=== PATIENT | female | born 1950 | race Hispanic/Latino ===

== ENCOUNTER 2016-08-23 12:17 | Emergency (ER) | payer BC, OTHER ==
[2016-08-23 12:33] VITALS: RESP 18; BMI 36.6
[2016-08-23] MEDS ORDERED: TDAP Vaccine 0.5 mL Syr IM ONE (12:37)
--- NOTE | 2016-08-23 13:45 | RAD ---
PROCEDURE: Right Knee Radiographs. HISTORY: knee pain COMPARISON: None. FINDINGS: BONES: Normal. No fracture. JOINTS: Normal. No osteoarthritis. JOINT EFFUSION: None. OTHER FINDINGS: None. IMPRESSION: Normal radiographs of the right knee.
--- NOTE | 2016-08-23 13:57 | ED PDOC ---
Arrival/HPI - General Chief Complaint: Trauma Time Seen by Provider: 08/23/16 12:36 Historian: Patient - History of Present Illness Narrative History of Present Illness (Text): 08/23/16 15:53 66-year-old female presents today status post fall. Patient states she was rushing and tripped and fell landing on the right side. Patient complaining of pain and abrasion to the right knee complaining of pain to the right elbow and now is complaining of pain to the right ribs. Patient denies chest pain or shortness of breath. Denies neck or back pain. No medications taken for pain. Patient unsure of her last tetanus shot. Incident occurred prior to arrival Past Medical History - Provider Review Nursing Documentation Reviewed: Yes - Travel History Have you recently traveled outside [place] w/in the past 3 mons?: No - Infectious Disease Hx of Infectious Diseases: None - Tetanus Immunization Tetanus Immunization: Unknown - Reproductive Menopause: Yes - Cardiac Hx Hypertension: Yes Hx Pacemaker: No Hx Peripheral Edema: Yes - Pulmonary Other/Comment: smoker - Neurological Hx Paralysis: No - HEENT Hx HEENT Disorder: No - Renal Hx Renal Disorder: No - Endocrine/Metabolic Hx Endocrine Disorders: No - Hematological/Oncological Hx Cancer: Yes (skin) Hx Hepatitis C: Yes - Integumentary Hx Dermatological Disorder: No - Musculoskeletal/Rheumatological Hx Arthritis: Yes - Gastrointestinal Hx Gastrointestinal Disorders: Yes Other/Comment: cirrhosis - Genitourinary/Gynecological Hx Genitourinary Disorders: No - Psychiatric Hx Depression: No Hx Emotional Abuse: No Hx Physical Abuse: No Hx Substance Use: No - Past Surgical History Past Surgical History: No Previous - Anesthesia Hx Anesthesia: Yes Hx Anesthesia Reactions: No Hx Malignant Hyperthermia: No - Suicidal Assessment Feels Threatened In Home Enviroment: No Family/Social History - Physician Review Nursing Documentation Reviewed: Yes Family/Social History: Unknown Family HX Smoking Status: Heavy Smoker > 10 Cigarettes Daily Hx Alcohol Use: Yes (PAST ETOH(5-7 BEERS/DAY);LAST USE 10/14/13) Hx Substance Use: No Substance used: herion, cocaine, marijuana Hx Substance Use Treatment: No Allergies/Home Meds Allergies/Adverse Reactions: Allergies No Known Allergies Allergy (Verified 08/23/16 12:33) Home Medications: Home Meds Medication Instructions Recorded Confirmed Ferrous Sulfate [Feosol] 325 mg PO DAILY 12/30/13 03/20/15 Omeprazole 20 mg PO DAILY 12/30/13 03/20/15 Potassium Chloride 10 meq PO DAILY 12/30/13 03/20/15 Propranolol Hydrochloride 10 mg PO TID 12/30/13 03/20/15 [Propranolol] Sertraline HCl [Sertraline] 25 mg PO DAILY 12/30/13 03/20/15 Tramadol HCl [Ultram] 50 mg PO Q8 PRN 01/06/14 03/20/15 Review of Systems - Review of Systems Constitutional: absent: Fatigue, Fevers Respiratory: absent: SOB, Cough Cardiovascular: absent: Chest Pain, Palpitations Gastrointestinal: absent: Abdominal Pain, Diarrhea, Nausea, Vomiting Musculoskeletal: Arthralgias. absent: Back Pain, Neck Pain Skin: Other (Abrasion to the right knee) Physical Exam Vital Signs Reviewed: Yes Vital Signs Temp Pulse Resp BP Pulse Ox 08/23/16 15:05 97.5 F L 80 18 154/86 H 98 08/23/16 12:22 97.2 F L 78 18 177/114 H 99 Temperature: Afebrile Blood Pressure: Hypertensive Pulse: Regular Respiratory Rate: Normal Appearance: Positive for: Well-Appearing, Non-Toxic, Comfortable Pain Distress: None Mental Status: Positive for: Alert and Oriented X 3 - Systems Exam Head: Present: Atraumatic Mouth: Present: Moist Mucous Membranes Neck: Present: Normal Range of Motion. No: MIDLINE TENDERNESS, Paraspinal Tenderness Respiratory/Chest: Present: Clear to Auscultation, Good Air Exchange, Tender to Palpation (Minimal tenderness noted to the right lateral ribs. No step-offs or crepitus). No: Respiratory Distress, Accessory Muscle Use, Wheezes, Decreased Breath Sounds, Rhonchi, Tachypneic Cardiovascular: Present: Regular Rate and Rhythm, Normal S1, S2. No: Murmurs Back: Present: Normal Inspection Upper Extremity: Present: Normal ROM, NORMAL PULSES, Tenderness (Right elbow: There is tenderness noted over the posterior elbow at the olecranon process. Full range of motion of the elbow without pain. Sensation and distal pulses intact. There is no edema nor erythema no ecchymosis.), Neurovascularly Intact, Capillary Refill < 2s. No: Swelling, Erythema, Deformity Lower Extremity: Present: NORMAL PULSES, Normal ROM, Tenderness (Right knee: There is abrasion noted over the anterior aspect of the right knee. Surrounding erythema and ecchymosis noted. There is full range of motion of the knee with pain. No calf tenderness. Sensation intact.), Swelling, Neurovascularly Intact. No: CALF TENDERNESS, Erythema Neurological: Present: GCS=15, Speech Normal Skin: Present: Warm, Dry, Normal Color Psychiatric: Present: Alert, Oriented x 3 Medical Decision Making ED Course and Treatment: 08/23/16 15:56 Patient nontoxic well-appearing in no distress slightly hypertensive. Patient with a history of hypertension did not take her medications today X-rays of the right knee: No fracture X-rays of the right elbow: No fracture X-rays of the right ribs/PA chest: No fracture no pneumothorax Patient refused injection for pain Tramadol given by mouth Tetanus updated Abrasions to the knee were cleaned with normal saline, bacitracin and a dressing applied Patient placed in knee immobilizer, pt unable to tolerate crutches, cane given. I discussed all results with patient advised to followup with the orthopedist for the next 2 days. Return if symptoms worsen persist or new symptoms develop i advised the patient that although the xrays show no fracture; there is still a possibility for ligamentous or tendon injury the patient must see the orthopedist for further evaluation. Patient verbalizes understanding of discharge instructions and need for immediate followup. Impression: knee pain, abrasion, knee, elbow pain, rib contusion Motrin every 6 hours as needed for pain continue tramadol at home for moderate to severe pain. Rest, ice, compression, elevation Followup with the orthopedist within the next 2 days Followup with primary care physician within the next 2 days keep wounds clean and dry; apply bacitracin twice daily. Return if symptoms worsen persist or if new symptoms develop - RAD Interpretation Radiology Orders: 08/23/16 12:36 ELBOW RIGHT 3 VIEWS ROUTINE [RAD] Stat KNEE W PATELLA RIGHT 3 VIEW [RAD] Stat RIBS RIGHT & PA CHEST [RAD] Stat - Medication Orders Current Medication Orders: Discontinued Medications Tetanus/Reduced Diphtheria/Acell Pertussis (Boostrix Vaccine Inj) 0.5 ml IM .ONCE ONE Stop: 08/23/16 12:38 Last Admin: 08/23/16 12:51 Dose: 0.5 ML MAR Immunization Data Document 08/23/16 12:51 [facility] (Rec: 08/23/16 12:52 [id number]) Immunization Data Vaccine Lot Number [id number] Vaccine Expiration Date 08/10/18 Site Given Right Arm Tramadol HCl (Ultram) 50 mg PO STAT STA Stop: 08/23/16 12:38 Last Admin: 08/23/16 12:51 Dose: 50 MG Disposition/Present on Arrival - Present on Arrival Any Indicators Present on Arrival: No History of DVT/PE: No History of Uncontrolled Diabetes: No Urinary Catheter: No History of Decub. Ulcer: No History Surgical Site Infection Following: None - Disposition Have Diagnosis and Disposition been Completed?: Yes Diagnosis: Knee pain, Abrasion, knee, Elbow pain, Rib contusion Disposition: HOME/ ROUTINE Disposition Time: 13:45 Patient Plan: Discharge Condition: GOOD Discharge Instructions (ExitCare): Knee Pain (ED), Abrasion (ED), Rib Contusion (ED) Additional Instructions: Motrin every 6 hours as needed for pain Take your tramadol as prescribed Follow-up with the orthopedist within the next 2 days Keep the wound clean and dry applied bacitracin twice daily Follow-up the primary care physician within the next 2 days Return if symptoms worsen persist or if new concerning symptoms develop Prescriptions: Ibuprofen [Motrin] 600 mg PO Q6H PRN #20 tab PRN Reason: pain/fever reduction Referrals: Darrell Flores MD [Primary Care Provider] - Follow up with primary Bhanu Lazar III, MD [Medical Doctor] - Follow up with primary
--- NOTE | 2016-08-23 14:35 | RAD ---
PROCEDURE: Radiographs of the Chest and Right Ribs. HISTORY: fall COMPARISON: None available. TECHNIQUE: Frontal radiograph of the chest and multiple oblique radiographs of the right ribs were obtained. FINDINGS: RIGHT RIBS: No fracture or focal lesion visualized. LUNGS: Clear. PLEURA: No pneumothorax or pleural fluid. CARDIOVASCULAR: Normal sized heart. No pulmonary vascular congestion. OTHER FINDINGS: None. IMPRESSION: Unremarkable radiographs of the chest and right ribs. No right rib fracture.
--- NOTE | 2016-08-23 14:35 | RAD ---
PROCEDURE: Radiographs of the right elbow. HISTORY: fall COMPARISON: No prior. FINDINGS: BONES: Normal. No fracture. JOINTS: Normal. No osteoarthritis. SOFT TISSUES: Normal. JOINT EFFUSION: None. OTHER FINDINGS: None. IMPRESSION: Unremarkable radiographs of the right elbow.
[2016-08-23 15:06] VITALS: BP 154/86; PULSE 80; TEMP 97.5; O2SAT 98
== END 2016-08-23 15:08 | disposition home or self-care (01) ==
LOC: ED 12:17
DX: S80.211A Abrasion, right knee, initial encounter (principal); S20.211A Contusion of right front wall of thorax, initial encounter; W01.0XXA Fall on same level from slipping, tripping and stumbling without subsequent striking against object, initial encounter; M25.561 Pain in right knee; M25.521 Pain in right elbow; I10 Essential (primary) hypertension; F17.210 Nicotine dependence, cigarettes, uncomplicated; Z23 Encounter for immunization

== ENCOUNTER 2016-12-19 10:51 | Inpatient (IN) | payer BC, MEDICARE ==
[2016-12-19 10:51] VITALS: BMI 36.6
[2016-12-19 12:09] LABS: BASO # 0.06 K/mm3 (0.0-2.0); BASO % 0.7 % (0.0-3.0); EOS # 0.3 (0.0-0.7); EOS % 3.2 % (1.5-5.0); GRAN # 6.28 (1.4-6.5); GRAN % 74.6 % (50.0-68.0); HEMOGLOBIN 14.2 gm/dL (12.0-16.0); LYMPH % 11.7 % (22.0-35.0); MEAN CELL VOLUME 80.8 fL (80.0-105.0); MEAN CORPUSCULAR HEMOGLOBIN 27.8 pg (25.0-35.0); MEAN CORPUSCULAR HGB CONC 34.4 g/dl (31.0-37.0); MEAN PLATELET VOLUME 10.8 fl (7.0-11.0); MONO # 0.8 (0.1-0.6); MONO % 9.8 % (1.0-6.0); PLATELET COUNT 149 10^3/uL (120.0-450.0); RBC 5.11 10^6/uL (3.5-6.1); RED CELL DISTRIBUTION WIDTH 14.2 % (11.5-14.5); WHITE BLOOD COUNT 8.4 10^3/ul (4.5-11.0)
[2016-12-19 12:16] LABS: ALBUMIN 4.4 g/dL (3.0-4.8); ALT/SGPT 22 U/L (7-56); AST/SGOT 32 U/L (15-39); BLOOD UREA NITROGEN 14 mg/dL (7-21); CALCIUM 9.3 mg/dL (8.4-10.5); GFR AFRICAN-AMERICAN > 60; GFR NON-AFRICAN AMERICAN > 60; LIPASE 41 U/L (23-300); MAGNESIUM 1.8 mg/dL (1.7-2.2)
[2016-12-19 12:19] LABS: INR 1.12 (0.93-1.08); PROTHROMBIN TIME 12.1 Seconds (9.9-11.8)
[2016-12-19 12:20] LABS: D DIMER 0.62 mg/L FEU (0-0.50)
[2016-12-19 12:25] LABS: B-TYPE NATRIURETIC PEPTIDE 152 pg/mL (0-450)
--- NOTE | 2016-12-19 12:25 | ED PDOC ---
Arrival/HPI - General Historian: Patient - History of Present Illness Symptom Onset: Sudden Symptom Course: Unchanged Quality: Dullness, Unable to Describe Severity Level: 7 Activities at Onset: Rest Context: Sitting <Austyn Snyder - Last Filed: 12/19/16 15:50> <Bandar Ronquillo - Last Filed: 12/19/16 15:55> - General Chief Complaint: Chest Pain Time Seen by Provider: 12/19/16 11:06 - History of Present Illness Narrative History of Present Illness (Text): 12/19/16 12:25 This is a 66 year old female with a past medical history of HTN, Esophageal varicies, Liver Cirrhosis and Hepatitis C who presents to [facility] with complaints of chest pain and shortness of breath since this morning at approximately 7 am. The patient states the pain began after drinking a cup of coffee. The patient describes the pain as sharp and dull with no distinction between them. She states that the pain radiates from mid sternal chest area to her esophagus. She rates the pain at 7/10 when it began this morning, and it has remained 7/10 upon coming to the E.D. The patient took 2 Amber-seltzer tablets and drank 2 cups of milk for the pain but it was not relieved. The patient was urged by her PMD Dr. Boles to come in today for the pain. Patient reports sore throat and shortness of breath upon exertion. Patient denies nausea, vomiting, stomach pain, lightheadedness, dizziness, or syncopal episodes. (Austyn Snyder) Past Medical History - Provider Review Nursing Documentation Reviewed: Yes - Travel History Have you recently traveled outside [place] w/in the past 3 mons?: No - Infectious Disease Hx of Infectious Diseases: None - Tetanus Immunization Tetanus Immunization: Unknown - Cardiac Hx Cardiac Disorders: Yes Hx Hypertension: Yes Hx Pacemaker: No Hx Peripheral Edema: Yes - Pulmonary Hx Respiratory Disorders: No Other/Comment: smoker - Neurological Hx Neurological Disorder: No Hx Paralysis: No - HEENT Hx HEENT Disorder: No - Renal Hx Renal Disorder: No - Endocrine/Metabolic Hx Endocrine Disorders: No - Hematological/Oncological Hx Blood Disorders: Yes Hx Cancer: Yes (skin) Hx Hepatitis C: Yes - Integumentary Hx Dermatological Disorder: No - Musculoskeletal/Rheumatological Hx Musculoskeletal Disorders: Yes Hx Arthritis: Yes - Gastrointestinal Hx Gastrointestinal Disorders: Yes Other/Comment: cirrhosis - Genitourinary/Gynecological Hx Genitourinary Disorders: No - Psychiatric Hx Psychophysiologic Disorder: No Hx Depression: No Hx Emotional Abuse: No Hx Physical Abuse: No Hx Substance Use: No - Past Surgical History Past Surgical History: No Previous - Anesthesia Hx Anesthesia: Yes Hx Anesthesia Reactions: No Hx Malignant Hyperthermia: No - Suicidal Assessment Feels Threatened In Home Enviroment: No <Austyn Snyder - Last Filed: 12/19/16 15:50> Family/Social History - Physician Review Nursing Documentation Reviewed: Yes Family/Social History: No Known Family HX Smoking Status: Heavy Smoker > 10 Cigarettes Daily Hx Alcohol Use: Yes (Previous alcohol abuse. Last drink was 3 years ago.) Hx Substance Use: Yes Substance used: herion, cocaine, marijuana Route: Intravenous/IM Hx Substance Use Treatment: No <Austyn Snyder - Last Filed: 12/19/16 15:50> Allergies/Home Meds <Austyn Snyder - Last Filed: 12/19/16 15:50> <Bandar Ronquillo - Last Filed: 12/19/16 15:55> Allergies/Adverse Reactions: Allergies No Known Allergies Allergy (Verified 12/19/16 10:58) Home Medications: Home Meds Medication Instructions Recorded Confirmed Ferrous Sulfate [Feosol] 325 mg PO DAILY 12/30/13 12/19/16 Sertraline HCl [Sertraline] 50 mg PO DAILY 12/30/13 12/19/16 Tramadol HCl [Ultram] 50 mg PO Q8 PRN 01/06/14 12/19/16 Ferrous Sulfate [Feosol] 325 mg PO DAILY 12/19/16 12/19/16 Furosemide [Lasix] 0 mg PO BID 12/19/16 12/19/16 Lisinopril [Zestril] 10 mg PO DAILY 12/19/16 12/19/16 Omeprazole [Omeprazole] 20 mg PO DAILY 12/19/16 12/19/16 Potassium Chloride [Klor-Con 10] 0 meq PO BID 12/19/16 12/19/16 Propranolol [Inderal] 0 mg PO BID 12/19/16 12/19/16 amLODIPine [Norvasc] 10 mg PO DAILY 12/19/16 12/19/16 Review of Systems - Physician Review All systems were reviewed & negative as marked: Yes - Review of Systems Constitutional: Normal Eyes: Normal ENT: Normal Respiratory: SOB Cardiovascular: Chest Pain, EDUARDO (mild) Gastrointestinal: Normal Genitourinary Female: Normal Musculoskeletal: Normal Skin: Normal Neurological: Normal Endocrine: Normal Hemo/Lymphatic: Normal Psychiatric: Normal <Austyn Snyder - Last Filed: 12/19/16 15:50> Physical Exam Vital Signs Reviewed: Yes Temperature: Afebrile Blood Pressure: Normal Pulse: Regular Respiratory Rate: Normal Appearance: Positive for: Well-Appearing, Non-Toxic, Comfortable Pain Distress: None Mental Status: Positive for: Alert and Oriented X 3 - Systems Exam Head: Present: Atraumatic, Normocephalic Pupils: Present: PERRL Extroacular Muscles: Present: EOMI Conjunctiva: Present: Normal Mouth: Present: Moist Mucous Membranes Pharnyx: Present: Normal. No: ERYTHEMA, EXUDATE Neck: Present: Normal Range of Motion Respiratory/Chest: Present: Clear to Auscultation, Good Air Exchange. No: Respiratory Distress, Accessory Muscle Use Cardiovascular: Present: Regular Rate and Rhythm, Normal S1, S2. No: Murmurs Abdomen: Present: Normal Bowel Sounds. No: Tenderness, Distention, Peritoneal Signs Back: Present: Normal Inspection Upper Extremity: Present: Normal Inspection. No: Cyanosis, Edema Lower Extremity: Present: Normal Inspection. No: Edema Neurological: Present: GCS=15, CN II-XII Intact, Speech Normal Skin: Present: Warm, Dry, Normal Color. No: Rashes Psychiatric: Present: Alert, Oriented x 3, Normal Insight, Normal Concentration <Austyn Snyder - Last Filed: 12/19/16 15:50> Medical Decision Making <Austyn Snyder - Last Filed: 12/19/16 15:50> <Bandar Ronquillo - Last Filed: 12/19/16 15:55> ED Course and Treatment: 12/19/16 12:41 66 year old female with pleuritic chest pain. Will order labs including, EKG, chest xray, CTA. Will give Toradol for pain as needed. Will reassess patient after remainder of labs return. (Austyn Snyder) A 66 year old female with pleuritic chest pain and shortness of breath. In agreement with resident note, which includes further HPI details. Patient was seen and evaluated with resident, came up with plan and treatment together. 12/19/16 15:39 As mentioned, patient with pleuritic chest pain with ekg with less than 1/2 mm EDISON inferiorly with SD depressions; more consistent with pericarditis. EKG does not fit STEMI criteria. First set of CE negative. Patient reports moderate improvement with toradol. Discussed with Dr. Herrera, who agrees with described findings and will consult. (Bandar Ronquillo) - Lab Interpretations Lab Results: 12/19/16 11:15 12/19/16 11:15 Lab Results 12/19/16 12:55: Urine Opiates Screen Negative, Urine Methadone Screen Negative, Ur Barbiturates Screen Negative, Ur Phencyclidine Scrn Negative, Ur Amphetamines Screen Negative, U Benzodiazepines Scrn Negative, U Oth Cocaine Metabols Negative, U Cannabinoids Screen Negative 12/19/16 12:55: Urine Color Yellow, Urine Appearance Clear, Urine pH 7.0, Ur Specific [place] 1.015, Urine Protein Negative, Urine Glucose (UA) Negative, Urine Ketones Negative, Urine Blood Trace-intact H, Urine Nitrate Negative, Urine Bilirubin Negative, Urine Urobilinogen 0.2, Ur Leukocyte Esterase Negative , Urine RBC 0 - 2, Urine WBC Negative 12/19/16 11:15: PT 12.1 H, INR 1.12 H, APTT 29.0, D-Dimer, Quantitative 0.62 H 12/19/16 11:15: Sodium 137, Potassium 4.5, Chloride 101, Carbon Dioxide 25, Anion Gap 16, BUN 14, Creatinine 0.7, Est GFR ( Amer) > 60, Est GFR (Non- Af Amer) > 60, Random Glucose 126 H, Calcium 9.3, Magnesium 1.8, Total Bilirubin 1.3, AST 32, ALT 22, Alkaline Phosphatase 105, Lactate Dehydrogenase 490, Total Creatine Kinase 52, Troponin I < 0.01, NT-Pro-B Natriuret Pep 152, Total Protein 8.6 H, Albumin 4.4, Globulin 4.2, Albumin/Globulin Ratio 1.0 L, Lipase 41 12/19/16 11:15: WBC 8.4 D, RBC 5.11, Hgb 14.2, Hct 41.3, MCV 80.8, MCH 27.8, MCHC 34.4, RDW 14.2, Plt Count 149, MPV 10.8, Gran % 74.6 H, Lymph % (Auto) 11.7 L, [place] % (Auto) 9.8 H, Eos % (Auto) 3.2, Baso % (Auto) 0.7, Gran # 6.28, Lymph # 1.0 L, [place] # 0.8 H, Eos # 0.3, Baso # 0.06 - RAD Interpretation Radiology Orders: 12/19/16 11:39 DUPLEX LOWER EXTRM VEIN BILAT [US] Stat 12/19/16 11:41 CHEST ONE VIEW [RAD] Stat 12/19/16 12:22 ANGIO CHEST PE PROTOCOL [CT] Stat - EKG Interpretation EKG Interpretation (Text): 12/19/16 15:54 NSR @ 81 with less than 1/2 mm EDISON inferolaterally with diffuse SD depressions; no reciprocal changes; EDISON are slightly more evident than previous on 12/30/13. ( Bandar Ronquillo) - Medication Orders Current Medication Orders: Discontinued Medications Aspirin (Aspirin) 325 mg PO STAT STA Stop: 12/19/16 11:40 Last Admin: 12/19/16 12:27 Dose: 325 mg Iodixanol (Visipaque 320 Mg/Ml 100 Ml) Confirm Administered Dose 100 ml IV .STK- MED ONE Stop: 12/19/16 13:26 Ketorolac Tromethamine (Toradol) 30 mg IVP STAT STA Stop: 12/19/16 12:24 Last Admin: 12/19/16 12:28 Dose: 30 mg <Austyn Snyder - Last Filed: 12/19/16 15:50> - PA / CLIENT SOLUTIONS DIRECTOR / Resident Statement / has reviewed & agrees with the documentation as recorded. MD/DO has examined the patient and agrees with the treatment plan. - Scribe Statement The provider has reviewed the documentation as recorded by the Scribe <Bandar Ronquillo - Last Filed: 12/19/16 15:55> - Scribe Statement Selene Schwarz Provider Scribe Attestation: All medical record entries made by the Scribe were at my direction and personally dictated by me. I have reviewed the chart and agree that the record accurately reflects my personal performance of the history, physical exam, medical decision making, and the department course for this patient. I have also personally directed, reviewed, and agree with the discharge instructions and disposition. (Bandar Ronquillo) Disposition/Present on Arrival - Present on Arrival History of DVT/PE: No History of Uncontrolled Diabetes: No Urinary Catheter: No History of Decub. Ulcer: No History Surgical Site Infection Following: None <Austyn Snyder - Last Filed: 12/19/16 15:50> - Present on Arrival Any Indicators Present on Arrival: No - Disposition Have Diagnosis and Disposition been Completed?: Yes Disposition Time: 15:30 Patient Plan: Observation, Telemetry <Bandar Ronquillo - Last Filed: 12/19/16 15:55> - Disposition Diagnosis: Chest pain Disposition: HOSPITALIZED Patient Problems: Current Active Problems Problem Status Onset Chest pain Acute Condition: FAIR Discharge Instructions (ExitCare): Chest Pain (ED) Referrals: Darrell Flores MD [Primary Care Provider] - Follow up with primary Forms: [facility] ([place])
[2016-12-19 12:30] LABS: TROPONIN I < 0.01 ng/mL
[2016-12-19 13:23] LABS: URINE BILIRUBIN NEGATIVE (NEGATIVE); URINE BLOOD TRACE-INTACT (NEGATIVE); URINE GLUCOSE (UA) NEGATIVE (NEGATIVE); URINE LEUKOCYTE ESTERASE NEGATIVE Leu/uL (NEGATIVE); URINE NITRATE NEGATIVE (NEGATIVE); URINE PROTEIN NEGATIVE mg/dL (<30 mg/dL); URINE UROBILINOGEN 0.2 E.U./dL (<1 E.U./dL)
[2016-12-19] MEDS ORDERED: Iodixanol 320 MG/ML 100 ML BOTTLE IV ONE (13:25)
[2016-12-19 13:26] LABS: URINE APPEARANCE CLEAR (CLEAR); URINE COLOR YELLOW (YELLOW)
[2016-12-19 13:44] LABS: URINE RBC 0 - 2 /hpf (0-2); URINE WBC NEGATIVE /hpf (0-6)
[2016-12-19 13:49] LABS: BARBITURATES, UR NEGATIVE (NEGATIVE); BENZODIAZEPINES, UR NEGATIVE (NEGATIVE); OPIATES, UR NEGATIVE (NEGATIVE); PHENCYCLIDINE, UR NEGATIVE (NEGATIVE)
--- NOTE | 2016-12-19 14:20 | RAD ---
PROCEDURE: CHEST RADIOGRAPH, 1 VIEW HISTORY: Chest pain COMPARISON: None available. FINDINGS: LUNGS: Clear. PLEURA: No pneumothorax or pleural fluid seen. CARDIOVASCULAR: Mild cardiomegaly OSSEOUS STRUCTURES: No significant abnormalities. VISUALIZED UPPER ABDOMEN: Normal. OTHER FINDINGS: None. IMPRESSION: No active disease.
--- NOTE | 2016-12-19 15:10 | CT ---
PROCEDURE: CT Chest with contrast (Pulmonary Angiogram) HISTORY: pleuritic chest pain - r/o PE COMPARISON: None available. TECHNIQUE: Axial computed tomography images were obtained of the chest in the pulmonary arterial phase of enhancement. Coronal and sagittal reformatted images were created and reviewed. Intravenous contrast dose: 100 cc of Visipaque Radiation dose: Total exam DLP = 697 mGy-cm. This CT exam was performed using one or more of the following dose reduction techniques: Automated exposure control, adjustment of the mA and/or kV according to patient size, and/or use of iterative reconstruction technique. FINDINGS: PULMONARY ARTERIES: Unremarkable. No pulmonary embolism. AORTA: No acute findings. No thoracic aortic aneurysm. LUNGS: Unremarkable. No nodule, mass or pulmonary consolidation. PLEURAL SPACES: Unremarkable. No effusion or pneuomothorax. HEART: Unremarkable. No cardiomegaly. No significant pericardial effusion. LYMPH NODES: No lymphadenopathy. BONES, CHEST WALL: Unremarkable. No fracture or destructive lesion OTHER FINDINGS: The liver has an irregular contour suspicious for cirrhosis. IMPRESSION: Unremarkable CT pulmonary angiogram. No pulmonary embolus.
--- NOTE | 2016-12-19 15:40 | CARD ---
APPROVED REPORT EKG Measurement Heart [id number] ID [id number] <Conclusion> Normal sinus rhythm with sinus arrhythmia 1.[address] elevations 2,3,F, new- R/O injury pattern, pericarditis, etc I notified Dr. Ronquillo
--- NOTE | 2016-12-19 18:37 | CON ---
CARDIOLOGY CONSULTATION DATE: 12/19/2016 HISTORY OF PRESENT ILLNESS: The patient is a 66-year-old woman who presents with pleuritic like focal chest discomfort with radiation to her neck since this morning. The patient's past medical history is notable for a long history of smoking. In addition, the patient suffers from hypertension. No diabetes mellitus. No previous cardiac history in the past. She underwent a stress test in 2012 which was unremarkable. The patient does take Motrin at home for pains in her knees. SOCIAL HISTORY: The patient is an active smoker. REVIEW OF SYSTEMS: Fourteen-point review of systems was reviewed in detail. Besides her substernal focal pleuritic like chest pain, the patient suffers from intermittent edema in the lower extremities with beginning of discoloration in the lower extremities. No history of myocardial infarction. PHYSICAL EXAMINATION: VITAL SIGNS: Blood pressure is 128/80, heart rate is in the 80s. NECK: Negative JVD. LUNGS: Without rales. HEART: Reveals S1, S2. No rub is audible. However, the noise in the emergency room as well as the patient's increased girth makes auscultation difficult. EXTREMITIES: Chronic edematous changes noted. EKG shows concave up ST elevations diffusely approximately 1 mm with minor LA depressions. LABORATORY DATA: Hemoglobin is 14.2. Chemistries. The glucose is 126. Troponin is negative x1. IMPRESSION: 1. Pleuritic chest pain. 2. High probability for pericarditis. 3. Chronic obstructive pulmonary disease with likely pulmonary hypertension as the cause of her pedal edema. 4. Pedal edema. 5. Diabetes mellitus. 6. Obesity. PLAN: Given these findings, I have discussed all these with the patient in detail. The patient has no issues with nonsteroidal anti-inflammatories. We will give a course of high-dose nonsteroidals till next 24-48 hours. We will obtain an echocardiogram to evaluate pericardial effusion as well as to rule out pulmonary hypertension. Berhane Herrera MD
[2016-12-19] MEDS ORDERED: Pneumococcal 23-Valent Vaccine IM ONE (23:07)
--- NOTE | 2016-12-20 09:22 | PN ---
DATE: 12/20/2016 SUBJECTIVE: The patient's symptoms are still present, slightly better on nonsteroidal anti-inflammatories. PHYSICAL EXAMINATION: VITAL SIGNS: Blood pressure 112/49 and heart rate in the 60s. NECK: Negative JVD. LUNGS: No rubs heard. HEART: Regular S1 and S2 without rubs. EXTREMITIES: Without edema. LABORATORY DATA: Troponins so far negative. Chemistries, glucose is 126. IMPRESSION: 1. Pericarditis. 2. Diabetes mellitus. 3. Chronic obstructive pulmonary disease. 4. High probability for pulmonary hypertension. PLAN: Given these findings, we will change her Motrin over to Indocin. An echocardiogram has been ordered. We will obtain a sedimentation rate today. Berhane Herrera MD
--- NOTE | 2016-12-20 15:25 | CARD ---
APPROVED REPORT EKG Measurement Heart [id number] <Conclusion> Sinus rhythm with premature atrial complexes Otherwise normal ECG
--- NOTE | 2016-12-20 23:08 | CP.PCM.PN ---
Subjective - Date & Time of Evaluation Date of Evaluation: 12/20/16 Time of Evaluation: 22:50 - Subjective Subjective: Patient seen for her c/o inability to fall asleep.She does not have any specific complaints. She was admitted for c/o chest pain. VS: HR 120 BP 107/60 RR 20 T 97.8 O2 sat 94% on RA PMH:HTN,Arthritis,Obesity,Skin Ca, Hep C,Esophageal varices. Objective - Vital Signs/Intake and Output Vital Signs (last 24 hours): Temp Pulse Resp BP Pulse Ox 98.3 F 116 H 21 142/63 98 12/20/16 17:30 12/20/16 22:00 12/20/16 17:30 12/20/16 17:30 12/20/16 06:00 - Medications Medications: Current Medications Alprazolam (Xanax) 0.25 mg PO STAT STA Stop: 12/20/16 23:02 Indomethacin (Indocin) 50 mg PO TID ADRIANNA Last Admin: 12/20/16 17:30 Dose: 50 mg - Labs Labs: PT 12.1 Seconds (9.9-11.8) H 12/19/16 11:15 INR 1.12 (0.93-1.08) H 12/19/16 11:15 APTT 29.0 Seconds (23.7-30.8) 12/19/16 11:15 - Constitutional Appears: No Acute Distress - Eye Exam Eye Exam: PERRL - ENT Exam ENT Exam: Mucous Membranes Moist - Neck Exam Neck Exam: Normal Inspection - Respiratory Exam Respiratory Exam: Clear to Ausculation Bilateral - Cardiovascular Exam Cardiovascular Exam: Tachycardia, REGULAR RHYTHM - GI/Abdominal Exam GI & Abdominal Exam: Soft, Normal Bowel Sounds. absent: Tenderness - Extremities Exam Extremities Exam: Normal Inspection. absent: Calf Tenderness - Neurological Exam Neurological Exam: Alert, Awake, Oriented x3 - Psychiatric Exam Psychiatric exam: Anxious - Skin Skin Exam: Dry, Warm Assessment and Plan - Assessment and Plan (Free Text) Assessment: Insomnia Anxiety Plan: Xanax 0.25 mg po
--- NOTE | 2016-12-20 23:46 | CP.PCM.PN ---
Subjective - Date & Time of Evaluation Date of Evaluation: 12/20/16 Time of Evaluation: 23:41 - Subjective Subjective: Patient was seen at bed side because she had conversion of rhythm on monitor from sinus rhythm to atrial fibrillation with rate fluctuating between 120's and 140's. She has no complaints at present except that she can not sleep. Denies chest pain, nausea, sweating, palpitation, shortness of breath. Medical record was reviewed. This 66 year old white woman was admitted with chest pain. Gives history of HTN , arthritis, Obesity,skin cancer in back, hepatitis C, esophageal varices. Objective - Vital Signs/Intake and Output Vital Signs (last 24 hours): Temp Pulse Resp BP Pulse Ox 98.3 F 127 H 21 142/63 98 12/20/16 17:30 12/20/16 22:55 12/20/16 17:30 12/20/16 17:30 12/20/16 06:00 - Medications Medications: Current Medications Diltiazem HCl (Cardizem) 20 mg IVP STAT STA Stop: 12/20/16 23:34 Enoxaparin Sodium (Lovenox) 90 mg SC Q12H ADRIANNA PRN Reason: Protocol Indomethacin (Indocin) 50 mg PO TID [facility] Last Admin: 12/20/16 17:30 Dose: 50 mg - Labs Labs: PT 12.1 Seconds (9.9-11.8) H 12/19/16 11:15 INR 1.12 (0.93-1.08) H 12/19/16 11:15 APTT 29.0 Seconds (23.7-30.8) 12/19/16 11:15 - Constitutional Appears: Well, No Acute Distress - Head Exam Head Exam: ATRAUMATIC, NORMAL INSPECTION, NORMOCEPHALIC Additional comments: Obesity. - Eye Exam Eye Exam: Normal appearance - ENT Exam ENT Exam: Normal External Ear Exam - Neck Exam Neck Exam: Normal Inspection - Respiratory Exam Respiratory Exam: NORMAL BREATHING PATTERN - Cardiovascular Exam Cardiovascular Exam: Tachycardia, Irregular Rhythm, +S1 (Normal.), +S2 (Normal.) . absent: JVD - GI/Abdominal Exam GI & Abdominal Exam: absent: Distended - Rectal Exam Rectal Exam: Deferred - Exam Additional comments: Deferred. - Extremities Exam Extremities Exam: Pedal Edema - Back Exam Back Exam: NORMAL INSPECTION - Neurological Exam Neurological Exam: Alert, Oriented x3 - Psychiatric Exam Psychiatric exam: Normal Affect, Normal Mood - Skin Skin Exam: Normal Color Assessment and Plan - Assessment and Plan (Free Text) Assessment: New onset of atrial fibrillation. Chest pain. HTN. Obesity. Athritis. Elevated D-dimer. History of hepatitis. History of skin cancer. History esophageal varices. ?Pericardits. COPD,Pulmonary HTN? Tobacco dependence. Plan: Cardizem 20 mg IV Stat. Cardizem drip prn. EKg-------------->Atrial fibrillation with RVR, no acute changes. Lovenox as ordered. BMP,Mag,Phos,troponin, TSH. Discussed with .
[2016-12-20] MEDS: Enoxaparin 100 mg Syringe SC SCH (23:48)
[2016-12-21 00:18] LABS: BLOOD UREA NITROGEN 14 mg/dL (7-21); CALCIUM 8.9 mg/dL (8.4-10.5); GFR AFRICAN-AMERICAN > 60; GFR NON-AFRICAN AMERICAN > 60
[2016-12-21 00:29] LABS: TROPONIN I < 0.01 ng/mL
[2016-12-21] MEDS ORDERED: diltiaZEM IVPB 100mg in NS 100 ML IV PRN (01:39)
[2016-12-21 05:51] VITALS: RESP 18; O2SAT 99
--- NOTE | 2016-12-21 10:57 | PN ---
DATE: 12/21/2016 SUBJECTIVE: The patient's chest pain is resolved. She had a short run of nonsustained atrial fibrillation yesterday which is back to normal sinus rhythm. PHYSICAL EXAMINATION: VITAL SIGNS: Blood pressure is 123/45, the heart rates in the 60s, normal sinus rhythm. NECK: Negative JVD. LUNGS: Without rales. HEART: Reveals S1, S2. EXTREMITIES: Trace edema. LABORATORY DATA: Included an echocardiogram which revealed good LV function. The right and left atrium were dilated and there is moderate pulmonary hypertension. IMPRESSION: 1. Resolution of pericarditis with Indocin. 2. Pulmonary hypertension. 3. Chronic obstructive pulmonary disease likely. 4. Diabetes mellitus. 5. Transient atrial fibrillation, likely from her dilated atria. 6. Intermittent pedal edema. PLAN: Given these findings, I have discussed with the patient about the cause of much of her medical issues. I have advised her about the need to stop smoking. The patient can be discharged from a cardiac perspective on p.o. Cardizem. No anticoagulation is indicated at this time. Given her cardiac risk factors, we will arrange for an outpatient stress test early next week. Berhane Herrera MD
[2016-12-21 11:36] VITALS: BP 105/57; TEMP 98
[2016-12-21] MEDS: Enoxaparin 100 mg Syringe SC SCH (12:12)
[2016-12-21 13:56] VITALS: PULSE 74
--- NOTE | 2016-12-22 05:29 | DS ---
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 The patient has been relatively well, but was sent for a cardiology evaluation. Unfortunately, her insurance did not approve stress test several months ago. The patient seems to have done rather well, but presenting to the emergency room with pain in the chest, fullness in the mid sternum and neck area. On EKG, she was found to have acute ST-T changes compatible with pericarditis. She was given anti-inflammatory medicines and admitted, cardiology consult was called. She was seen morning by Dr. Flores. Workup ensued including troponins, echocardiogram was ordered. The following night, she developed an episode of atrial fibrillation/flutter. Paving [employer] Surfacing Labourer, Dr. Berhane Herrera who had seen her earlier was notified and saw her again this morning. She converted back to sinus rhythm spontaneously in a very short time. Dr. Herrera was comfortable in her being discharged to home, and the patient was quite agreeable, in fact looking forward to going home today. Her medications were adjusted and diltiazem 180 mg p.o. daily was ordered and send to a drug store. I discussed the possibility of anticoagulation with Dr. Herrera. Since this was a transient atrial fibrillation and flutter, he felt it most prudent to wait. However, he did inform me how the patient's echo looked, and this was compatible with pulmonary hypertension making the importance of her smoking cessation all greater. He has also counseled the patient regarding her cirrhosis, hepatitis C, pedal edema, etc. FINAL DISCHARGE DIAGNOSES: 1. Acute pericarditis. 2. Transient atrial fibrillation and flutter. 3. Hepatitis C. 4. Cirrhosis. 5. Pulmonary hypertension as suspected on echocardiogram. 6. Hypertension. 7. Osteoarthritis. 8. Tobacco use disorder. 9. Pedal edema. 10. Obesity. Plan is to discharge her home as noted above and follow up in the office in one week. Darrell Flores MD
--- NOTE | 2016-12-22 08:38 | CARD ---
APPROVED REPORT EKG Measurement Heart [id number] <Conclusion> Atrial fibrillation with rapid ventricular response, new Small q in 3 NSSTW changes Prolonged QTC
== END 2016-12-21 16:51 | disposition home or self-care (01) | DRG 315 ==
LOC: ED 10:51 → ERH 15:33 → 2RNO 18:05 → OBSVTOIN 12-21 07:42
PROVIDERS: ADMIT Internal Medicine; ATTEND Internal Medicine
DX: I30.9 Acute pericarditis, unspecified (principal); I48.92 Unspecified atrial flutter; I85.10 Secondary esophageal varices without bleeding; K74.60 Unspecified cirrhosis of liver; I27.2 Other secondary pulmonary hypertension; I48.91 Unspecified atrial fibrillation; B19.20 Unspecified viral hepatitis C without hepatic coma; I10 Essential (primary) hypertension; M19.90 Unspecified osteoarthritis, unspecified site; E66.9 Obesity, unspecified; J44.9 Chronic obstructive pulmonary disease, unspecified; F41.9 Anxiety disorder, unspecified; G47.00 Insomnia, unspecified; Z72.0 Tobacco use; Z68.38 Body mass index [BMI] 38.0-38.9, adult; Z85.828 Personal history of other malignant neoplasm of skin

== ENCOUNTER 2017-01-28 13:02 | Inpatient (IN) | payer BC ==
[2017-01-28] MEDS: Sodium Chloride 0.9% 1,000 ML IV SCH (13:59)
[2017-01-28 14:10] LABS: BASO # 0.02 K/mm3 (0.0-2.0); BASO % 0.2 % (0.0-3.0); EOS # 0.1 (0.0-0.7); EOS % 0.9 % (1.5-5.0); GRAN # 6.96 (1.4-6.5); GRAN % 77.6 % (50.0-68.0); HEMATOCRIT 34.1 % (36.0-48.0); LYMPH % 11.3 % (22.0-35.0); MEAN CORPUSCULAR HEMOGLOBIN 27.5 pg (25.0-35.0); MEAN CORPUSCULAR HGB CONC 34.3 g/dl (31.0-37.0); MEAN PLATELET VOLUME 10.2 fl (7.0-11.0); MONO # 0.9 (0.1-0.6); RED CELL DISTRIBUTION WIDTH 14.4 % (11.5-14.5)
--- NOTE | 2017-01-28 14:12 | ED PDOC ---
Arrival/HPI - History of Present Illness Time/Duration: Prior to Arrival Symptom Onset: Gradual Symptom Course: Worsening Quality: Dullness Activities at Onset: Rest Context: Home <Teddy Argueta - Last Filed: 01/28/17 16:26> <Miguel AVenkata leblanc Fletcher - Last Filed: 01/30/17 08:15> - General Chief Complaint: Weakness/Neurological Deficit Time Seen by Provider: 01/28/17 13:06 - History of Present Illness Narrative History of Present Illness (Text): Patient is a 66 year old female with a past medical history of atrial fibrillation, HTN, and benign colon polyps who presents to the [facility] [place] [place] with complaints of lethargy, dizziness, shortness of breath, diarrhea and productive coughing. She states her symptoms began with overall lethargy dizziness associated with shortness of breath, and fatigue three weeks ago. Patient notes she has been sleeping much more than usual and is unable to carry out as many daily activities as before. She also admits to diarrhea that started two weeks ago and describes it as black in color. In the past week she states she has been coughing and expectorating clear colored mucous. She states that as of late she just has the desire to sleep since any physical activity drains her of energy. She denies chest pain, headache, constipation. 01/28/17 15:34 (Teddy Argueta) Past Medical History - Provider Review Nursing Documentation Reviewed: Yes - Infectious Disease Hx of Infectious Diseases: None - Tetanus Immunization Tetanus Immunization: Unknown - Cardiac Hx Cardiac Disorders: Yes Hx Atrial Fibrillation: Yes Hx Hypertension: Yes - Pulmonary Hx Respiratory Disorders: Yes Hx Chronic Obstructive Pulmonary Disease (COPD): Yes - Neurological Hx Neurological Disorder: No - HEENT Hx HEENT Disorder: No - Renal Hx Renal Disorder: No - Endocrine/Metabolic Hx Endocrine Disorders: No - Hematological/Oncological Hx Blood Disorders: Yes Hx Anemia: Yes (WITH BLOOD TRANSFUSION) Hx Cancer: Yes (skinTO RIGHT SHOULDER.REMOVED.) Hx Cirrhosis: Yes Hx Hepatitis C: Yes (IVDU) - Integumentary Hx Dermatological Disorder: Yes (skin CA) - Musculoskeletal/Rheumatological Hx Musculoskeletal Disorders: Yes Hx Arthritis: Yes Hx Falls: Yes - Gastrointestinal Hx Gastrointestinal Disorders: Yes (OBESITY) Hx Diverticulitis: Yes (ESOPHAGEAL VARICES) Hx Gastrointestinal Ulcer: Yes Other/Comment: cirrhosis - Genitourinary/Gynecological Hx Genitourinary Disorders: No - Psychiatric Hx Psychophysiologic Disorder: Yes (ETOH ABUSE,H/O COCAINE,HEROINE ABUSE-IVDU, SMOKES CIGARETTES) Hx Depression: Yes Hx Emotional Abuse: No Hx Physical Abuse: No Hx Substance Use: No - Past Surgical History Past Surgical History: No Previous - Surgical History Other/Comment: RIGHT LUMP REMOVED TO RIGHT WRIST. - Anesthesia Hx Anesthesia: Yes Hx Anesthesia Reactions: No Hx Malignant Hyperthermia: No - Suicidal Assessment Feels Threatened In Home Enviroment: No <Teddy Argueta - Last Filed: 01/28/17 16:26> Family/Social History - Physician Review Nursing Documentation Reviewed: Yes Family/Social History: Other Smoking Status: Former Smoker Hx Alcohol Use: No Hx Substance Use: No Substance used: herion, cocaine, marijuana Hx Substance Use Treatment: No <Teddy Argueta - Last Filed: 01/28/17 16:26> <Venkata Mueller - Last Filed: 01/30/17 08:15> Narrative Family History (Free Text): Non contributory 01/28/17 14:10 (Teddy Argueta) Allergies/Home Meds <Teddy Argueta - Last Filed: 01/28/17 16:26> <Venkata Mueller - Last Filed: 01/30/17 08:15> Allergies/Adverse Reactions: Allergies No Known Allergies Allergy (Verified 01/28/17 13:10) Home Medications: Home Meds Medication Instructions Recorded Confirmed Sertraline HCl 50 mg PO DAILY 12/30/13 01/28/17 Tramadol HCl [Ultram] 50 mg PO TID PRN 01/06/14 01/28/17 Ferrous Sulfate [Feosol] 325 mg PO DAILY 12/19/16 01/28/17 Furosemide [Lasix] 40 mg PO DAILY 12/19/16 01/28/17 Lisinopril [Zestril] 10 mg PO DAILY 12/19/16 01/28/17 Omeprazole 40 mg PO DAILY 12/19/16 01/28/17 Propranolol [Inderal] 10 mg PO BID 12/19/16 01/28/17 Diclofenac [Diclofenac Sodium] 50 mg PO BID 12/25/16 01/28/17 Diltiazem HCl [Diltiazem 24Hr Cd] 180 mg PO DAILY 12/25/16 01/28/17 Spironolactone [Aldactone] 25 mg PO BID 12/25/16 01/28/17 Ibuprofen [Motrin Tab] 400 mg PO BID 01/28/17 01/28/17 Potassium Chloride [Klor-Con] 20 meq PO DAILY 01/28/17 01/28/17 Review of Systems - Physician Review All systems were reviewed & negative as marked: Yes - Review of Systems Constitutional: Fatigue Eyes: absent: Vision Changes ENT: absent: Sore Throat Respiratory: SOB, Cough, Sputum. absent: Wheezing Cardiovascular: Normal. absent: Chest Pain Gastrointestinal: Abdominal Pain (B/L upper epigastric), Diarrhea (dark colored) , Nausea Skin: absent: Rash, Pruritis Neurological: Dizziness, Other (general weakness) Endocrine: Normal Hemo/Lymphatic: Normal Psychiatric: Normal <Teddy Argueta - Last Filed: 01/28/17 16:26> Physical Exam Vital Signs Reviewed: Yes Temperature: Afebrile Blood Pressure: Normal Pulse: Regular Respiratory Rate: Normal Appearance: Positive for: Ill-Appearing Pain Distress: Mild Mental Status: Positive for: Alert and Oriented X 3 Finger Stick Blood Glucose: 163 - Systems Exam Head: Present: Atraumatic, Normocephalic Extroacular Muscles: Present: EOMI Mouth: Present: Moist Mucous Membranes Respiratory/Chest: Present: Clear to Auscultation, Good Air Exchange. No: Wheezes Cardiovascular: Present: Regular Rate and Rhythm, Normal S1, S2. No: Murmurs Abdomen: Present: Tenderness (B/L upper epigastric area), Normal Bowel Sounds. No: Distention Neurological: Present: CN II-XII Intact, Speech Normal Skin: Present: Warm, Normal Color Psychiatric: Present: Alert, Oriented x 3 <Teddy Argueta - Last Filed: 01/28/17 16:26> Medical Decision Making <Teddy Argueta - Last Filed: 01/28/17 16:26> - Lab Interpretations I have reviewed the lab results: Yes Interpretation: Abnormal lab values (potassium was elevated and treated with kayexalate) - RAD Interpretation Credit Collector: ED Physician <Venkata Mueller - Last Filed: 01/30/17 08:15> ED Course and Treatment: Assessment 66 year old woman presenting with complaints of overall lethargy, weakness, dizziness, shortness of breath, and N/V. Plan - EKG - CXR - CBC, CMP, PT/PTT - Pepcid, Zofran, IVF - Discussed with patient's primary physician Dr. Ruiz regarding admitting to telemetry; he is in agreement. - Dr. Calderon consulted for further evaluation of GI bleed - Dr. Herrera consulted for further evaluation of increased BNP 01/28/17 14:19 01/28/17 15:42 01/28/17 15:43 (Teddy Argueta) 01/28/17 15:48 Patient Seen With Resident: The patient is a 66 year old woman with overall weakness, shortness of breath, nausea, vomiting, and dizziness. The patient will receive an EKG, Chest X-ray, Labs, Pepcid, Zofran, and IV Fluids. In agreement with resident note which contains more details about the patient. Patient was seen and evaluated with resident. Came up with plan and treatment together. EKG: Ordered, reviewed, and independently interpreted the EKG. Rate : 72 BPM Rhythm : NSR Interpretation : No ST-segment elevations or depressions, no T-wave inversions, normal intervals. Comparison : No previous EKG for comparison. Patient's case with discussed with Dr. Flores with my supervision. He agreed to accept patient to telemetry for GI bleed and CHF. Dr. Calderon and Dr. Herrera were consults. I discussed plan with daughter and patient and they agree to admission. Patient is stable and comfortable prior to admission. (Venkata Mueller) - Lab Interpretations Lab Results: 01/28/17 14:06 01/28/17 14:06 Lab Results 01/28/17 14:06: PT 13.3 H, INR 1.23 H, APTT 31.3 H 01/28/17 14:06: TSH 3rd Generation 1.39 01/28/17 14:06: Sodium 134, Potassium 5.7 H* D, Chloride 103, Carbon Dioxide 16 L, Anion Gap 21 H, BUN 54 H, Creatinine 2.1 H, Est GFR ( Amer) 29, Est GFR (Non-Af Amer) 24, Random Glucose 157 H, Calcium 9.5, Phosphorus 4.9 H, Magnesium 2.4 H, Total Bilirubin 1.0, AST 47 H, ALT 40, Alkaline Phosphatase 137 H, NT-Pro-B Natriuret Pep 1800 H, Total Protein 8.3, Albumin 4.1, Globulin 4.2, Albumin/Globulin Ratio 1.0 L 01/28/17 14:06: WBC 9.0, RBC 4.26, Hgb 11.7 L, Hct 34.1 L, MCV 80.0, MCH 27.5, MCHC 34.3, RDW 14.4, Plt Count 313, MPV 10.2, Gran % 77.6 H, Lymph % (Auto) 11.3 L, Maverick % (Auto) 10.0 H, Eos % (Auto) 0.9 L, Baso % (Auto) 0.2, Gran # 6.96 H, Lymph # 1.0 L, Maverick # 0.9 H, Eos # 0.1, Baso # 0.02 01/28/17 14:03: Troponin I < 0.01 - RAD Interpretation Radiology Orders: 01/28/17 13:38 CXR [CHEST PORTABLE] [RAD] Stat CXR normal. No pneumonia. No pleural effusions. (Venkata Mueller) - Medication Orders Current Medication Orders: Diltiazem HCl (Cardizem Cd) 180 mg PO DAILY [facility] Last Admin: 01/29/17 09:46 Dose: 180 mg Furosemide (Lasix) 40 mg PO DAILY [facility] Last Admin: 01/29/17 09:46 Dose: 40 mg Sodium Chloride (Sodium Chloride 0.9%) 1,000 mls @ 100 mls/hr IV .Q10H [facility] Last Admin: 01/30/17 02:18 Dose: 100 mls/hr Ondansetron HCl (Zofran Inj) 4 mg IVP Q4H PRN PRN Reason: Nausea/Vomiting Pantoprazole Sodium (Protonix Ec Tab) 40 mg PO 0600 [facility] Last Admin: 01/30/17 05:46 Dose: 40 mg Propranolol HCl (Inderal) 10 mg PO BID [facility] Last Admin: 01/29/17 17:59 Dose: 10 mg Sertraline HCl (Zoloft) 50 mg PO DAILY [facility] Last Admin: 01/29/17 09:47 Dose: 50 mg Discontinued Medications Famotidine (Pepcid) 20 mg IVP STAT STA Stop: 01/28/17 13:37 Last Admin: 01/28/17 13:59 Dose: 20 mg Furosemide (Lasix) 40 mg IVP STAT STA Stop: 01/28/17 15:05 Last Admin: 01/28/17 15:16 Dose: 40 mg Ondansetron HCl (Zofran Inj) 4 mg IVP STAT STA Stop: 01/28/17 13:37 Last Admin: 01/28/17 13:59 Dose: 4 mg Pantoprazole Sodium (Protonix Inj) 40 mg IVP STAT STA Stop: 01/28/17 15:15 Last Admin: 01/28/17 15:40 Dose: 40 mg Sodium Polystyrene Sulfonate (Kayexalate Oral Susp) 15 gm PO STAT STA Stop: 01/28/17 14:56 Last Admin: 01/28/17 15:16 Dose: 15 gm <Teddy Argueta - Last Filed: 01/28/17 16:26> - Scribe Statement The provider has reviewed the documentation as recorded by the Scribe <Venkata Mueller - Last Filed: 01/30/17 08:15> - Scribe Statement Radha Hough Provider Scribe Attestation: All medical record entries made by the Scribe were at my direction and personally dictated by me. I have reviewed the chart and agree that the record accurately reflects my personal performance of the history, physical exam, medical decision making, and the department course for this patient. I have also personally directed, reviewed, and agree with the discharge instructions and disposition. (Venkata Mueller) Disposition/Present on Arrival - Present on Arrival Any Indicators Present on Arrival: No History of DVT/PE: No History of Uncontrolled Diabetes: No Urinary Catheter: No History of Decub. Ulcer: No History Surgical Site Infection Following: None - Disposition Have Diagnosis and Disposition been Completed?: Yes Patient Plan: Admission <Teddy Argueta - Last Filed: 01/28/17 16:26> - Disposition Disposition Time: 15:21 <Venkata Mueller - Last Filed: 01/30/17 08:15> - Disposition Diagnosis: CHF (congestive heart failure) Disposition: HOSPITALIZED Patient Problems: Current Active Problems Problem Status Onset CHF (congestive heart failure) Acute Condition: SERIOUS
--- NOTE | 2017-01-28 14:16 | RAD ---
HISTORY: Sternal pain COMPARISON: 12/19/2016 FINDINGS: LUNGS: No active pulmonary disease. PLEURA: No significant pleural effusion identified, no pneumothorax apparent. CARDIOVASCULAR: Mild cardiomegaly OSSEOUS STRUCTURES: No significant abnormalities. VISUALIZED UPPER ABDOMEN: Normal. OTHER FINDINGS: None. IMPRESSION: No active disease.
[2017-01-28 14:20] LABS: INR 1.23 (0.93-1.08); PARTIAL THROMBOPLASTIN TIME 31.3 Seconds (23.7-30.8)
[2017-01-28 14:32] LABS: CALCIUM 9.5 mg/dL (8.4-10.5); MAGNESIUM 2.4 mg/dL (1.7-2.2); PHOSPHOROUS 4.9 mg/dL (2.5-4.5); TOTAL PROTEIN 8.3 g/dL (5.8-8.3)
[2017-01-28 14:42] LABS: POTASSIUM 5.7 mmol/L (3.6-5.0)
[2017-01-28] MEDS ORDERED: Sod Polystyrene Sulf 15 gm/60 ml Oral Susp PO STA (14:55)
[2017-01-28 18:43] LABS: CALCIUM 9.2 mg/dL (8.4-10.5)
[2017-01-28 19:08] VITALS: BMI 38.4
[2017-01-29] MEDS: Sodium Chloride 0.9% 1,000 ML IV SCH ×3 (02:51→13:48)
[2017-01-29] MEDS: Pantoprazole 40 mg EC Tab PO SCH (06:00)
[2017-01-29 06:57] LABS: BASO # 0.02 K/mm3 (0.0-2.0); BASO % 0.4 % (0.0-3.0); EOS # 0.1 (0.0-0.7); EOS % 1.3 % (1.5-5.0); GRAN # 3.85 (1.4-6.5); GRAN % 69.2 % (50.0-68.0); HEMATOCRIT 30.5 % (36.0-48.0); LYMPH % 17.6 % (22.0-35.0); MEAN CELL VOLUME 80.1 fl (80.0-105.0); MEAN CORPUSCULAR HEMOGLOBIN 26.8 pg (25.0-35.0); MEAN CORPUSCULAR HGB CONC 33.4 g/dl (31.0-37.0); MEAN PLATELET VOLUME 10.4 fl (7.0-11.0); MONO # 0.6 (0.1-0.6); MONO % 11.5 % (1.0-6.0); RED CELL DISTRIBUTION WIDTH 14.3 % (11.5-14.5); RETIC% 1.29 % (0.5-1.5); WHITE BLOOD COUNT 5.6 10^3/ul (4.5-11.0)
[2017-01-29 07:17] LABS: ALB/GLOB RATIO 0.9 (1.1-1.8); ALKALINE PHOSPHATASE 105 U/L (38-126); ALT/SGPT 41 U/L (7-56); AMYLASE 41 U/L (35-125); AST/SGOT 37 U/L (14-36); BILIRUBIN,TOTAL 0.7 mg/dL (0.2-1.3); BLOOD UREA NITROGEN 41 mg/dL (7-21); CALCIUM 8.7 mg/dL (8.4-10.5); CARBON DIOXIDE 19 mmol/L (21-33); CHLORIDE 108 mmol/L (98-107); GFR AFRICAN-AMERICAN 50; GLUCOSE,RANDOM 85 mg/dL (70-110); LIPASE 71 U/L (23-300); SODIUM 137 mmol/L (132-148); TOTAL PROTEIN 7.2 g/dL (5.8-8.3)
[2017-01-29 07:27] LABS: POTASSIUM 5.8 mmol/L (3.6-5.0)
[2017-01-29 07:31] LABS: IRON 40 ug/dL (45-180)
[2017-01-29 07:32] LABS: TROPONIN I < 0.01 ng/mL
[2017-01-29 07:55] LABS: FREE T4 1.27 ng/dL (0.78-2.19)
[2017-01-29 08:09] LABS: THYROID STIMULATING HORMONE 1.93 mIU/mL (0.46-4.68)
--- NOTE | 2017-01-29 08:26 | HP ---
CHIEF COMPLAINT: Diarrhea. HISTORY OF PRESENT ILLNESS: This is a 66-year-old woman, known for many years, who presented to the emergency room this Sunday afternoon complaining of 5 days of watery stool that became black with foul odor. The patient has a history of GI bleed from esophageal varices in 2013, requiring hospitalization for approximately 3 weeks, at which time varices and cirrhosis were diagnosed. The patient has been abstaining from alcohol since that time and was in her usual state of health with some other chronic conditions when these symptoms started on Sunday. She saw her cardiac monitor on Sunday, but she thought the symptoms would clear. Today, feeling more weak and lethargic, lightheaded, dehydrated and she came to the emergency room. PAST MEDICAL HISTORY: Significant for hypertension since 2003. Negative for diabetes, tuberculosis, asthma, seizures, gout, stroke, TIA, LA or coronary artery disease. She has skin cancer removed from the right shoulder. She has cholelithiasis with a stone present on recent scan. She was hospitalized for pneumonia in 1979 and for the GI bleed in 2013. She recently developed pedal edema. She was seen by cardiac monitor. This was felt to be related to pulmonary hypertension, related to her tobacco use. She was counseled her cardiac monitor again just recently, but the patient did not take kindly to his advise and recommendations regarding weight loss and tobacco cessation. Hepatitis C with recent treatment by line decorator. Hospitalized 1 month ago with pericarditis CURRENT MEDICATIONS: From review of my electronic medical prescription record revealed the patient to be taking diclofenac which was prescribed approximately 1 month ago, diltiazem 180 mg, spironolactone 0.5 mg b.i.d., Lasix 40 mg daily. She also has been taking ibuprofen lately along with Klor-Con 10 mEq, furosemide 40 mg and tramadol p.r.n. ALLERGIES: SHE HAS NO KNOWN ALLERGIES. FAMILY HISTORY: Her mother in 2011, she is the oldest of 3. She has a brother in [place] and a sister in [place]. She is single with 1 daughter, born in 1977 and therefore approximately 39 years old. SOCIAL HISTORY: Tobacco: She continues to smoke 1/4 to half pack cigarettes per day. Alcohol: Quit in 09/2013 with a history of 2 to 10 beers per day. History of IV drug use 30 plus years ago felt to be the etiology of the hepatitis C. Coffee one a day. MEDICAL PROCEDURES: Her last colonoscopy was in 2013 and last endoscopy was in 2013. She does her mammogram every year or two, sometimes gets the flu shot. PROBLEM LIST: From the office records includes status post esophageal varices bleeding in 09/2013, hepatitis C, cirrhosis, history of alcohol use, active tobacco use and pedal edema in 2017. REVIEW OF SYSTEMS: Significant for arthritis related symptoms, pedal edema, generalized fatigue and obesity. PHYSICAL EXAMINATION GENERAL: The patient was seen this Sunday evening approximately 8:00 p.m. in room 272, bed 2. She is awake, alert, ambulatory, out of bed to bathroom with loose stools related to the Kayexalate she received in the emergency room. HEENT: Head and neck were unremarkable. Conjunctivae are pink. Mucous membranes are moist. NECK: Supple without masses. Thyroid is not palpable. There is no swollen lymph nodes. There is no JVD. LUNGS: Showed good aeration right and left, and are clear. HEART: Regular, not tachycardic and no murmurs was noted. BREASTS: Not examined. ABDOMEN: Soft, nontender with no guarding or rebound, but increased bowel sounds. EXTREMITIES: Thin with no edema. IMPRESSION: 1. Five days of watery diarrhea. 2. Melena with significant drop in her hemoglobin since the last hospitalization. 3. Acute kidney injury with a rise in the BUN and creatinine, probably related to a multitude of factors including diarrhea, upper gastrointestinal bleed, nonsteroidal antiinflammatory drugs, diuretics. 4. Hyperkalemia related to the factors listed above. 5. History of hypertension with recent treatment reported Lasix as well. 6. Cirrhosis. 7. History of alcohol use. 8. Acute active tobacco use disorder. 9. Bilateral pedal edema since 2017. 10. Elevated BNP. 11. Clinically dry dehydration. PLAN: The patient will be admitted to the telemetry bed. Sole Conforming Machine Operator, Dr. Herrera who knows her well has been called to consult as well as gastroenterology group who know her as well. Labs were written for the morning including the anemia workup. We will need to follow serial hemoglobins. Hyperkalemia has already been addressed with Kayexalate. Dosages given in the ER resulting in loose stools. We will continue overnight aggressive hydration in spite of elevated BNP and check morning potassium. I will opt to treat the patient with review of the lab results, but monitor closely for volume overload and this has been noted in the past. Now, she appears clinically dry. Darrell Flores MD [facility]
[2017-01-29] MEDS: diltiaZEM 180 mg/24 Hours CD Cap PO SCH (09:46)
--- NOTE | 2017-01-29 11:02 | CP.PCM.CON ---
<Thom Aranda - Last Filed: 01/29/17 10:58> History of Present Illness - History of Present Illness History of Present Illness: GI Consult Note for Dr. Calderon 66 y/o F with PMH of cirrhosis, esophageal varices, known and treated Hepatitis C, HTN, acute pericarditis, and basal cell carcinoma s/p resection presents for 1 month history of progressive fatigue and weakness. Pt states she was admitted to the hospital 1 month ago for acute pericarditis and has been feeling her symptoms since that time. She has also developed mild shortness of breath over the past week. During the past week, pt admits to having black colored diarrhea , with no sylvia blood present. Pt reports only wanting to sleep because she has no energy. Of note, patient has been chronically using NSAIDS over the past month for her pericarditis. She also admits to a productive cough, producing clear mucous. This morning patient states she had a bowel movement which was normal, no blood or dark stools noted. Denies CP, nausea, vomiting, hematochezia , hematemesis, dysphagia, unintentional weight loss. Endo Hx: EGD 3 years ago showing varices and gastric ulcer, colonoscopy at that time which was negative PMH: Cirrhosis, esophageal varices, known and treated Hepatitis C, HTN, acute pericarditis, and basal cell carcinoma Surgical Hx: Basal cell ca resection FMH: Mother - Lung cancer Social Hx: Former smoker, quit 1 month ago. Former alcohol use, quit 3 years ago. Denies illicit drug use Medication: Reviewed, as per chart. Allergies: NKDA Review of Systems - Review of Systems Review of Systems: 12 point ROS as per HPI, otherwise negative Past Patient History - Infectious Disease Hx of Infectious Diseases: None - Tetanus Immunizations Tetanus Immunization: Unknown - Past Social History Smoking Status: Former Smoker - CARDIAC Hx Cardiac Disorders: Yes Hx Hypertension: Yes - PULMONARY Hx Respiratory Disorders: Yes Hx Chronic Obstructive Pulmonary Disease (COPD): Yes - NEUROLOGICAL Hx Neurological Disorder: No - HEENT Hx HEENT Problems: No - RENAL Hx Chronic Kidney Disease: No - ENDOCRINE/METABOLIC Hx Endocrine Disorders: No - HEMATOLOGICAL/ONCOLOGICAL Hx Blood Disorders: Yes Hx Anemia: Yes (WITH BLOOD TRANSFUSION) Hx Cancer: Yes (skinTO RIGHT SHOULDER.REMOVED.) Hx Cirrhosis: Yes Hx Hepatitis C: Yes (IVDU) - INTEGUMENTARY Hx Dermatological Problems: Yes (skin CA) - MUSCULOSKELETAL/RHEUMATOLOGICAL Hx Falls: Yes - GASTROINTESTINAL Hx Gastrointestinal Disorders: Yes (OBESITY) Hx Diverticulitis: Yes (ESOPHAGEAL VARICES) Other/Comment: cirrhosis - GENITOURINARY/GYNECOLOGICAL Hx Genitourinary Disorders: No - PSYCHIATRIC Hx Psychophysiologic Disorder: Yes (ETOH ABUSE,H/O COCAINE,HEROINE ABUSE-IVDU, SMOKES CIGARETTES) Hx Depression: Yes Hx Emotional Abuse: No Hx Physical Abuse: No Hx Substance Use: Yes (former) - SURGICAL HISTORY Other/Comment: RIGHT LUMP REMOVED TO RIGHT WRIST. - ANESTHESIA Hx Anesthesia: Yes Hx Anesthesia Reactions: No Hx Malignant Hyperthermia: No Meds Allergies/Adverse Reactions: Allergies Allergy/AdvReac Type Severity Reaction Status Date / Time No Known Allergies Allergy Verified 01/28/17 13:10 - Medications Medications: Current Medications Diltiazem HCl (Cardizem Cd) 180 mg PO DAILY [facility] Last Admin: 01/29/17 09:46 Dose: 180 mg Furosemide (Lasix) 40 mg PO DAILY [facility] Last Admin: 01/29/17 09:46 Dose: 40 mg Sodium Chloride (Sodium Chloride 0.9%) 1,000 mls @ 100 mls/hr IV .Q10H [facility] Last Admin: 01/29/17 09:48 Dose: Not Given Ondansetron HCl (Zofran Inj) 4 mg IVP Q4H PRN PRN Reason: Nausea/Vomiting Pantoprazole Sodium (Protonix Ec Tab) 40 mg PO 0600 [facility] Last Admin: 01/29/17 06:00 Dose: 40 mg Propranolol HCl (Inderal) 10 mg PO BID [facility] Last Admin: 01/29/17 09:47 Dose: 10 mg Sertraline HCl (Zoloft) 50 mg PO DAILY [facility] Last Admin: 01/29/17 09:47 Dose: 50 mg Physical Exam - Constitutional Appears: Non-toxic, No Acute Distress - Head Exam Head Exam: ATRAUMATIC, NORMAL INSPECTION, NORMOCEPHALIC - ENT Exam ENT Exam: Mucous Membranes Dry - Respiratory Exam Respiratory Exam: Clear to Auscultation Bilateral, NORMAL BREATHING PATTERN. absent: Rales, Rhonchi, Wheezes - Cardiovascular Exam Cardiovascular Exam: RRR, +S1, +S2 - GI/Abdominal Exam GI & Abdominal Exam: Normal Bowel Sounds, Soft. absent: Tenderness - Rectal Exam Rectal Exam: NORMAL INSPECTION Additional comments: Brown stool noted - Extremities Exam Extremities exam: Negative for: calf tenderness, pedal edema - Neurological Exam Neurological exam: Alert, CN II-XII Intact, Oriented x3 - Psychiatric Exam Psychiatric exam: Normal Affect, Normal Mood - Skin Skin Exam: Intact, Normal Color, Warm Results - Vital Signs Recent Vital Signs: Last Vital Signs Temp 97.9 F 01/29/17 06:00 Pulse 83 01/29/17 09:47 Resp 20 01/29/17 06:00 BP 137/66 01/29/17 09:47 Pulse Ox 97 01/29/17 06:00 - Labs Result Diagrams: 01/29/17 06:30 01/29/17 06:30 Labs: Laboratory Results - last 24 hr 01/28/17 01/28/17 01/29/17 15:30 18:00 06:30 WBC 5.6 D RBC 3.81 Hgb 10.2 L Hct 30.5 L MCV 80.1 MCH 26.8 MCHC 33.4 RDW 14.3 Plt Count 241 MPV 10.4 Gran % 69.2 H Lymph % (Auto) 17.6 L Moffat % (Auto) 11.5 H Eos % (Auto) 1.3 L Baso % (Auto) 0.4 Gran # 3.85 Lymph # 1.0 L Moffat # 0.6 Eos # 0.1 Baso # 0.02 ESR 107 H Retic Count 1.29 Sodium 136 Potassium 6.0 H* Chloride 103 Carbon Dioxide 20 L Anion Gap 19 BUN 52 H Creatinine 2.1 H Est GFR ( Amer) 29 Est GFR (Non-Af Amer) 24 POC Glucose (mg/dL) Random Glucose 168 H Calcium 9.2 Iron TIBC % Saturation Total Bilirubin AST ALT Alkaline Phosphatase Troponin I Total Protein Albumin Globulin Albumin/Globulin Ratio Amylase Lipase Free T4 TSH 3rd Generation Blood Type O POSITIVE Antibody Screen Negative BBK History Checked Patient has bt 01/29/17 01/29/17 01/29/17 06:30 06:30 06:30 WBC RBC Hgb Hct MCV MCH MCHC RDW Plt Count MPV Gran % Lymph % (Auto) Moffat % (Auto) Eos % (Auto) Baso % (Auto) Gran # Lymph # Moffat # Eos # Baso # ESR Retic Count Sodium 137 Potassium 5.8 H* Chloride 108 H Carbon Dioxide 19 L Anion Gap 16 BUN 41 H Creatinine 1.3 Est GFR ( Amer) 50 Est GFR (Non-Af Amer) 41 POC Glucose (mg/dL) Random Glucose 85 Calcium 8.7 Iron 40 L TIBC 346 % Saturation 11 L Total Bilirubin 0.7 AST 37 H D ALT 41 Alkaline Phosphatase 105 Troponin I < 0.01 Total Protein 7.2 Albumin 3.5 Globulin 3.7 Albumin/Globulin Ratio 0.9 L Amylase 41 Lipase 71 Free T4 1.27 TSH 3rd Generation 1.93 Blood Type Antibody Screen BBK History Checked 01/29/17 08:31 WBC RBC Hgb Hct MCV MCH MCHC RDW Plt Count MPV Gran % Lymph % (Auto) Moffat % (Auto) Eos % (Auto) Baso % (Auto) Gran # Lymph # Moffat # Eos # Baso # ESR Retic Count Sodium Potassium Chloride Carbon Dioxide Anion Gap BUN Creatinine Est GFR ( Amer) Est GFR (Non-Af Amer) POC Glucose (mg/dL) 116 H Random Glucose Calcium Iron TIBC % Saturation Total Bilirubin AST ALT Alkaline Phosphatase Troponin I Total Protein Albumin Globulin Albumin/Globulin Ratio Amylase Lipase Free T4 TSH 3rd Generation Blood Type Antibody Screen BBK History Checked Assessment & Plan - Assessment and Plan (Free Text) Plan: - Possible upper GI bleed - Acute renal failure - Acute pericarditis - Liver cirrhosis - HTN - EGD once medically stable - Will obtain Liver US - Will obtain AFP level - Will continue Protonix daily - Monitor Hg closely - Hold NSAIDs - Recommend cardiac evaluation and clearance for EGD - Consider Nephrology Consult - Hepatitis C to be reevaluated as outpatient - Colonoscopy as outpatient Manoj, PGY-2 <Kodi Calderon Y - Last Filed: 01/29/17 12:23> Meds - Medications Medications: Current Medications Diltiazem HCl (Cardizem Cd) 180 mg PO DAILY [facility] Last Admin: 01/29/17 09:46 Dose: 180 mg Furosemide (Lasix) 40 mg PO DAILY [facility] Last Admin: 01/29/17 09:46 Dose: 40 mg Sodium Chloride (Sodium Chloride 0.9%) 1,000 mls @ 100 mls/hr IV .Q10H [facility] Last Admin: 01/29/17 09:48 Dose: Not Given Ondansetron HCl (Zofran Inj) 4 mg IVP Q4H PRN PRN Reason: Nausea/Vomiting Pantoprazole Sodium (Protonix Ec Tab) 40 mg PO 0600 [facility] Last Admin: 01/29/17 06:00 Dose: 40 mg Propranolol HCl (Inderal) 10 mg PO BID [facility] Last Admin: 01/29/17 09:47 Dose: 10 mg Sertraline HCl (Zoloft) 50 mg PO DAILY [facility] Last Admin: 01/29/17 09:47 Dose: 50 mg Results - Vital Signs Recent Vital Signs: Last Vital Signs Temp 98.5 F 01/29/17 11:45 Pulse 71 01/29/17 11:45 Resp 20 01/29/17 11:45 BP 114/79 01/29/17 11:45 Pulse Ox 97 01/29/17 06:00 - Labs Result Diagrams: 01/29/17 06:30 01/29/17 06:30 Labs: Laboratory Results - last 24 hr 01/28/17 01/28/17 01/29/17 15:30 18:00 06:30 WBC 5.6 D RBC 3.81 Hgb 10.2 L Hct 30.5 L MCV 80.1 MCH 26.8 MCHC 33.4 RDW 14.3 Plt Count 241 MPV 10.4 Gran % 69.2 H Lymph % (Auto) 17.6 L Moffat % (Auto) 11.5 H Eos % (Auto) 1.3 L Baso % (Auto) 0.4 Gran # 3.85 Lymph # 1.0 L Moffat # 0.6 Eos # 0.1 Baso # 0.02 ESR 107 H Retic Count 1.29 Sodium 136 Potassium 6.0 H* Chloride 103 Carbon Dioxide 20 L Anion Gap 19 BUN 52 H Creatinine 2.1 H Est GFR ( Amer) 29 Est GFR (Non-Af Amer) 24 POC Glucose (mg/dL) Random Glucose 168 H Calcium 9.2 Iron TIBC % Saturation Ferritin Total Bilirubin AST ALT Alkaline Phosphatase Troponin I Total Protein Albumin Globulin Albumin/Globulin Ratio Amylase Lipase Free T4 TSH 3rd Generation Blood Type O POSITIVE Antibody Screen Negative BBK History Checked Patient has bt 01/29/17 01/29/17 01/29/17 06:30 06:30 06:30 WBC RBC Hgb Hct MCV MCH MCHC RDW Plt Count MPV Gran % Lymph % (Auto) Moffat % (Auto) Eos % (Auto) Baso % (Auto) Gran # Lymph # Moffat # Eos # Baso # ESR Retic Count Sodium 137 Potassium 5.8 H* Chloride 108 H Carbon Dioxide 19 L Anion Gap 16 BUN 41 H Creatinine 1.3 Est GFR ( Amer) 50 Est GFR (Non-Af Amer) 41 POC Glucose (mg/dL) Random Glucose 85 Calcium 8.7 Iron 40 L TIBC 346 % Saturation 11 L Ferritin 259.0 Total Bilirubin 0.7 AST 37 H D ALT 41 Alkaline Phosphatase 105 Troponin I < 0.01 Total Protein 7.2 Albumin 3.5 Globulin 3.7 Albumin/Globulin Ratio 0.9 L Amylase 41 Lipase 71 Free T4 1.27 TSH 3rd Generation 1.93 Blood Type Antibody Screen BBK History Checked 01/29/17 08:31 WBC RBC Hgb Hct MCV MCH MCHC RDW Plt Count MPV Gran % Lymph % (Auto) Moffat % (Auto) Eos % (Auto) Baso % (Auto) Gran # Lymph # Moffat # Eos # Baso # ESR Retic Count Sodium Potassium Chloride Carbon Dioxide Anion Gap BUN Creatinine Est GFR ( Amer) Est GFR (Non-Af Amer) POC Glucose (mg/dL) 116 H Random Glucose Calcium Iron TIBC % Saturation Ferritin Total Bilirubin AST ALT Alkaline Phosphatase Troponin I Total Protein Albumin Globulin Albumin/Globulin Ratio Amylase Lipase Free T4 TSH 3rd Generation Blood Type Antibody Screen BBK History Checked Attending/Attestation - Attestation I have personally seen and examined this patient.: Yes I have fully participated in the care of the patient.: Yes I have reviewed all pertinent clinical information: Yes Notes (Text): 01/29/17 12:11 I have seen and examined patient with GI fellow and medical economics consultant. Agree with above documentation with the following additions. In brief, this is a 66 year old female with history of decompensated HCV/ETOH cirrhosis (sober for past 3 years) who was treated for chronic HCV by me in December 2014 with documented viral clearance and SVR, HTN, recently diagnosed pericarditis who presents to hospital with complaint of progressive lethargy, weakness and profound dyspnea on minimal exertion. She was diagnosed with acute pericarditis one month ago and following therapy with NSAIDs has noted dyspnea even with minimal ambulation across the room. She also reports having dark colored bowel movements over the past one week, though bowel movements for the past 2 days have been normal. During this time she has been having intermittent epigastric abdominal pain but denies nausea, vomiting, fever/chills , or weight loss. She had an EGD 3 years ago which showed esophageal varices and gastric ulcer, colonoscopy 10 years ago which was normal as per patient. Additional physical exam: Abdomen: no palpable hepato/splenomegaly appreciated Decompensated HCV/ETOH cirrhosis, admission MELD 12 s/p HCV therapy in 2014 with documented SVR HTN Pericarditis Anemia Dyspnea on exertion Acute renal insufficiency - Low sodium diet as tolerated - H/H stable, continue to monitor, no overt blood loss noted. Rectal exam performed today shows brown soft stool in rectal vault. - Continue with PPI therapy - Continue to monitor creatinine, follow up cardiology recommendations - Obtain abdominal US, AFP for HCC surveillance - Obtain HCV viral load - Patient would benefit from EGD evaluation once medically optimized for workup of anemia and prior h/o esophageal varices. She will also require elective outpatient colonoscopy, to be arranged with me once acute medical issues have resolved. Will continue to monitor patient clinical course.
[2017-01-29 12:29] LABS: FOLATE > 20.0 ng/mL
--- NOTE | 2017-01-29 15:59 | US ---
HISTORY: History of Cirrhosis, evaluate for ascites mass COMPARISON: None. TECHNIQUE: Sonographic evaluation of the abdomen. FINDINGS: LIVER: Measures 20.1 cm. Normal echogenicity. . The liver is enlarged. The contour is nodular consistent with hepatic cirrhosis. There is an apparent mass anterior to the caudate lobe, measuring approximately 1.9 cm in diameter. . This most likely corresponds to nodularity of the caudate lobe as seen on CT angiogram of the chest performed on 12/19/2016. However, given the appearance on sonographic examination, further evaluation with contrast-enhanced CT examination of the abdomen is advised. Prior CT examination was obtained in the angiographic phase as it was performed for evaluation of the chest for pulmonary embolism. . There is no other hepatic mass identified. There is no biliary dilatation. GALLBLADDER: There is cholelithiasis. The gallbladder is contracted. There is no significant mural thickening. COMMON BILE DUCT: Measures 3 mm. No stones. No dilatation. PANCREAS: Unremarkable as visualized. No mass. No ductal dilatation. RIGHT KIDNEY: Measures 10.5cm. Normal echogenicity. No calculus, mass, or hydronephrosis. LEFT KIDNEY: Measures 12.0cm. Normal echogenicity. No calculus, mass, or hydronephrosis. SPLEEN: Minimal splenomegaly. AORTA: No aneurysmal dilatation. IVC: Unremarkable. OTHER FINDINGS: None. IMPRESSION: Hepatic cirrhosis. Hepatomegaly. Questionable 1.9 cm mass anterior to the caudate lobe. Evaluation with contrast-enhanced CT examination of the abdomen is advised. Cholelithiasis without evidence of cholecystitis. Minimal splenomegaly.
--- NOTE | 2017-01-29 17:22 | CARD ---
APPROVED REPORT EKG Measurement Heart [id number] <Conclusion> Sinus rhythm with premature atrial complexes Otherwise normal ECG
--- NOTE | 2017-01-29 20:24 | US ---
PROCEDURE: Portal vein duplex ultrasound. CLINICAL HISTORY: Cirrhosis. Deteriorating liver function. Evaluate for portal vein thrombosis. PHYSICIAN(S): Berhane Walker M.D. FINDINGS: The liver is heterogeneous in echotexture. No focal mass is appreciated on these limited images. The extrahepatic portal vein is patent with hepatopetal flow. The hepatic artery is patent. Limited images of the central patent veins are patent. The spleen is markedly enlarged. No ascites is appreciated. IMPRESSION: 1. Patent portal vein with hepatopetal flow.
--- NOTE | 2017-01-29 23:39 | PN ---
SUBJECTIVE: The patient is a 66-year-old female who was admitted to the [facility] yesterday after presenting to the emergency room complaining of weakness, exhaustion, and black tarry diarrhea. The patient stated that the diarrhea began shortly after her previous hospitalization about 1 month ago for pericarditis. The patient is known to have a past medical history positive for esophageal varices, hepatomegaly, hepatitis C, pulmonary hypertension, and COPD. She is also known to have cholelithiasis without cholecystitis. When seen today, the patient is lying in bed. She is relatively comfortable; however, she still complains of feeling totally exhausted. PHYSICAL EXAMINATION: HEART: Regular. LUNGS: Clear anteriorly. ABDOMEN: Examination of the abdomen reveals mild mid epigastric and upper quadrant tenderness on deep palpation. EXTREMITIES: The extremities are free of cyanosis, clubbing, or edema; however, her lower legs are tender to palpation and the patient feels that they are more swollen than usual. LABORATORY DATA: This morning's laboratory studies show that the hemoglobin and hematocrit are 10.2 and 30.5, white blood cell count is 5.6, BUN is 41, creatinine is 1.3 which is a bit higher than past readings from early December. Sodium is 137, potassium is 5.8. Her vital signs are stable. INR is 1.23. The patient has a blood type of O positive. ASSESSMENT AND PLAN: She is being followed by Dr. Calderon, the speech pathology supervisor and Dr. Herrera, the universal branch consultant. As per the patient there are plans for possible upper GI endoscopy, possibly in the A.M. There are also plans for colonoscopy to be completed during this hospital stay. Ultrasound of the abdomen was performed which shows hepatic cirrhosis, hepatomegaly and a questionable 1.9 cm mass anterior to the caudate lobe. Evaluation with contrast enhanced CT is suggested. There is cholelithiasis without cholecystitis and minimal splenomegaly. So the patient is currently being treated with Cardizem 180 mg once a day, Inderal 10 mg twice a day, Lasix 40 mg daily, Protonix 40 mg daily, she is on IV fluids at 100 mL an hour, she is getting Zofran as needed for nausea and vomiting, and she is on Zoloft 50 mg once a day. Her TSH is normal at 1.93. We agree with the current medication and agree with the planned workup including endoscopy and colonoscopy. I encouraged the patient to increase her exercise level once discharged to home. The patient may do well with subacute rehab after this hospitalization. Man Flores MD [email or web address]
[2017-01-30] MEDS: Sodium Chloride 0.9% 1,000 ML IV SCH (02:18)
--- NOTE | 2017-01-30 02:31 | CON ---
DATE OF CONSULTATION: 01/29/2017 HISTORY OF PRESENT ILLNESS: The patient is a 66-year-old woman who presents with lethargy. There is a question of a GI bleed in the past. In the past, the patient has suffered from paroxysmal atrial fibrillation, pericarditis. She is currently chest pain free. She also suffers from hypertension. Her main complaint now is diarrhea with lethargy. SOCIAL HISTORY: She denies smoking. REVIEW OF SYSTEMS: A 14-point review of systems is free of cardiac symptoms. PHYSICAL EXAMINATION VITAL SIGNS: Blood pressure 114/70, heart rate in the 70s. NECK: Negative JVD. CARDIOPULMONARY: Heart is S1 and S2. LUNGS: Without rales. EXTREMITIES: Without edema. LABORATORY DATA: BUN and creatinine is 41/1.3, potassium is 5.8, glucose is 108. The hemoglobin is 10.2. DIAGNOSTIC DATA: Review of her stress test performed in 12/2016, reveals good LV function and no perfusion defects. IMPRESSION: 1. Lethargy. 2. Hypertension, which is well-controlled. 3. Anemia, rule out gastrointestinal bleed. 4. History of pericarditis. 5. History of paroxysmal atrial fibrillation, the patient is in normal sinus rhythm. Given these findings, we will follow her CBC carefully. Berhane Herrera MD
[2017-01-30] MEDS: Pantoprazole 40 mg EC Tab PO SCH (05:46)
[2017-01-30 08:35] LABS: BASO # 0.01 K/mm3 (0.0-2.0); BASO % 0.2 % (0.0-3.0); EOS # 0.1 (0.0-0.7); EOS % 1.4 % (1.5-5.0); GRAN # 3.1 (1.4-6.5); GRAN % 69.8 % (50.0-68.0); HEMATOCRIT 30.5 % (36.0-48.0); LYMPH # 0.8 (1.2-3.4); LYMPH % 18.7 % (22.0-35.0); MEAN CELL VOLUME 80.7 fl (80.0-105.0); MEAN CORPUSCULAR HEMOGLOBIN 26.7 pg (25.0-35.0); MEAN CORPUSCULAR HGB CONC 33.1 g/dl (31.0-37.0); MEAN PLATELET VOLUME 9.8 fl (7.0-11.0); MONO # 0.4 (0.1-0.6); MONO % 9.9 % (1.0-6.0); RED CELL DISTRIBUTION WIDTH 14.2 % (11.5-14.5); WHITE BLOOD COUNT 4.4 10^3/ul (4.5-11.0)
[2017-01-30 08:47] LABS: ALKALINE PHOSPHATASE 97 U/L (38-126); ALT/SGPT 44 U/L (7-56); AST/SGOT 37 U/L (14-36); BILIRUBIN,TOTAL 0.8 mg/dL (0.2-1.3); BLOOD UREA NITROGEN 15 mg/dL (7-21); CALCIUM 8.7 mg/dL (8.4-10.5); CARBON DIOXIDE 19 mmol/L (21-33); CHLORIDE 109 mmol/L (98-107); GFR AFRICAN-AMERICAN > 60; GLUCOSE,RANDOM 90 mg/dL (70-110); INR 1.29 (0.93-1.08); POTASSIUM 5.1 mmol/L (3.6-5.0); SODIUM 137 mmol/L (132-148); TOTAL PROTEIN 6.9 g/dL (5.8-8.3)
[2017-01-30] MEDS: diltiaZEM 180 mg/24 Hours CD Cap PO SCH (10:24)
--- NOTE | 2017-01-30 11:11 | CP.PCM.PN ---
<Li Gross - Last Filed: 01/30/17 12:19> Subjective - Date & Time of Evaluation Date of Evaluation: 01/30/17 Time of Evaluation: 11:10 - Subjective Subjective: Gastroenterology Fellow/PGY5 Progress Note Patient notes improving weakness and shortness of breath. Denies abdominal pain. Notes few small dark loose bowel movements yesterday without melena or hematochezia. 12-point review of systems negative except for as above. Objective - Vital Signs/Intake and Output Vital Signs (last 24 hours): Temp Pulse Resp BP Pulse Ox 98.4 F 81 20 121/64 99 01/30/17 07:29 01/30/17 10:24 01/30/17 07:29 01/30/17 10:25 01/30/17 07:29 Intake and Output: 01/30/17 01/30/17 06:59 18:59 Intake Total 2800 Output Total 400 Balance 2400 - Medications Medications: Current Medications Diltiazem HCl (Cardizem Cd) 180 mg PO DAILY [facility] Last Admin: 01/30/17 10:24 Dose: 180 mg Furosemide (Lasix) 40 mg PO DAILY [facility] Last Admin: 01/30/17 10:25 Dose: 40 mg Sodium Chloride (Sodium Chloride 0.9%) 1,000 mls @ 100 mls/hr IV .Q10H [facility] Last Admin: 01/30/17 02:18 Dose: 100 mls/hr Ondansetron HCl (Zofran Inj) 4 mg IVP Q4H PRN PRN Reason: Nausea/Vomiting Pantoprazole Sodium (Protonix Ec Tab) 40 mg PO 0600 [facility] Last Admin: 01/30/17 05:46 Dose: 40 mg Propranolol HCl (Inderal) 10 mg PO BID [facility] Last Admin: 01/30/17 10:24 Dose: 10 mg Sertraline HCl (Zoloft) 50 mg PO DAILY [facility] Last Admin: 01/30/17 10:25 Dose: 50 mg - Labs Labs: 01/30/17 08:15 01/30/17 08:15 PT 13.9 Seconds (9.9-11.8) H 01/30/17 08:15 INR 1.29 (0.93-1.08) H 01/30/17 08:15 APTT 31.3 Seconds (23.7-30.8) H 01/28/17 14:06 - Constitutional Appears: Non-toxic, No Acute Distress - Head Exam Head Exam: ATRAUMATIC, NORMOCEPHALIC - Eye Exam Eye Exam: EOMI, PERRL Pupil Exam: PERRL. absent: Miosis, Mydriatic - ENT Exam ENT Exam: Mucous Membranes Moist, Normal Oropharynx - Neck Exam Neck Exam: Full ROM, Normal Inspection - Respiratory Exam Respiratory Exam: Clear to Ausculation Bilateral. absent: Rales, Rhonchi, Wheezes - Cardiovascular Exam Cardiovascular Exam: RRR, +S1, +S2. absent: Gallop, Rubs - GI/Abdominal Exam GI & Abdominal Exam: Soft, Normal Bowel Sounds. absent: Distended, Firm, Guarding, Rigid, Tenderness, Organomegaly, Rebound - Extremities Exam Extremities Exam: Normal Inspection. absent: Pedal Edema - Neurological Exam Neurological Exam: Alert, Awake - Psychiatric Exam Psychiatric exam: Normal Affect, Normal Mood - Skin Skin Exam: Dry, Intact, Normal Color, Warm Assessment and Plan - Assessment and Plan (Free Text) Assessment: 66 year old female with history of Hypertension, history of Polysubstance abuse , decompensated HCV/ETOH cirrhosis (2013- GIB 2/2 esophageal varices), HCV treatment December 2014 (Dr. Calderon) with viral clearance and SVR, and recently diagnosed pericarditis presenting with black diarrhea, weakness, and shortness of breath. Active treatment of decompensated cirrhosis likely 2/2 esophageal varices/PUD due to prolonged NSAID use (1 month). Prior EGD in 2013 showed esophageal varices and gastric ulcer. Prior colonoscopy 10 years ago endorsed to be normal per patient. Plan: >no overt GI blood loss >unknown H/H baseline >H/H stable >PPI daily >cardiology managing- recent normal stress test 12/25/16 >U/S- 1.9cm caudate lobe lesion, patent portal system >recent acute renal insufficiency, first normal creatinine today >will provide elective cross-sectional imaging, once kidney function fully improved >AFP 1.2 >pending HCV viral load >low sodium diet as tolerated >will benefit from elective outpatient colonoscopy once medically optimized >will follow clinical course <Alejandro Sorensen - Last Filed: 01/30/17 12:53> Objective - Vital Signs/Intake and Output Vital Signs (last 24 hours): Temp Pulse Resp BP Pulse Ox 98.4 F 81 20 121/64 99 01/30/17 07:29 01/30/17 10:24 01/30/17 07:29 01/30/17 10:25 01/30/17 07:29 Intake and Output: 01/30/17 01/30/17 06:59 18:59 Intake Total 2800 Output Total 400 Balance 2400 - Medications Medications: Current Medications Diltiazem HCl (Cardizem Cd) 180 mg PO DAILY [facility] Last Admin: 01/30/17 10:24 Dose: 180 mg Furosemide (Lasix) 40 mg PO DAILY [facility] Last Admin: 01/30/17 10:25 Dose: 40 mg Ondansetron HCl (Zofran Inj) 4 mg IVP Q4H PRN PRN Reason: Nausea/Vomiting Pantoprazole Sodium (Protonix Ec Tab) 40 mg PO 0600 [facility] Last Admin: 01/30/17 05:46 Dose: 40 mg Propranolol HCl (Inderal) 10 mg PO BID [facility] Last Admin: 01/30/17 10:24 Dose: 10 mg Sertraline HCl (Zoloft) 50 mg PO DAILY [facility] Last Admin: 01/30/17 10:25 Dose: 50 mg - Labs Labs: 01/30/17 08:15 01/30/17 08:15 PT 13.9 Seconds (9.9-11.8) H 01/30/17 08:15 INR 1.29 (0.93-1.08) H 01/30/17 08:15 APTT 31.3 Seconds (23.7-30.8) H 01/28/17 14:06 Attending/Attestation - Attestation I have personally seen and examined this patient.: Yes I have fully participated in the care of the patient.: Yes I have reviewed all pertinent clinical information, including history, physical exam and plan: Yes Notes (Text): 01/30/17 12:47 66 year old female with history of HTN, substance abuse, ETOH/HCV Cirrhosis c/b varices a/w fatigue, anemia, possible melena. 1. Anemia 2. Esophageal varices 3. Cirrhosis Plan: -not currently bleeding, but prior egd 3 years ago with h/o varices -needs repeat EGD -plan for tomorrow -NPO after MN -supportive care in the meantime
--- NOTE | 2017-01-30 22:28 | PN ---
DATE: 01/30/2017 SUBJECTIVE: GENERAL: The patient is comfortable in bed. No shortness of breath. No chest pain. VITAL SIGNS: Blood pressure is 121/64, heart rate is in the 80s. NECK: Negative JVD. LUNGS: Without rales. HEART: S1, S2. EXTREMITIES: Without edema. LABORATORY DATA: The hemoglobin is 10.1. Chemistries, potassium is 5.1 with a creatinine of 0.6. IMPRESSION: 1. GI bleed. 2. Anemia. 3. Hypertension, which is controlled. 4. History of pericarditis 5. Paroxysmal atrial fibrillation, which the patient remains in normal sinus rhythm. PLAN: Given these findings, the patient is scheduled for endoscopy in the morning. Berhane Herrera MD
--- NOTE | 2017-01-31 02:04 | PN ---
DATE: 01/30/2017 The patient was seen this Sunday in room #565, bed #2. She is sitting comfortably in bed. She is complaining of generalized tiredness and fatigue. Diarrhea has quieted quite a bit, but still she reports several watery bowel movements today. There is no abdominal pain. There is no vomiting. EGD is scheduled for tomorrow. I will order continuous serial H and H's. Her BUN and creatinine are back down into the normal range, so I will discontinue her IV fluids. CT report is noted about the almost 2 cm, possible suspected hepatic lesion; this is most likely liver contour and cirrhosis related, but I will defer to GI and order followup CT scan perhaps tomorrow if uncomfortable with her renal function being stabilized. Darrell Flores MD
[2017-01-31 07:05] LABS: BASO # 0.01 K/mm3 (0.0-2.0); BASO % 0.2 % (0.0-3.0); EOS # 0.1 (0.0-0.7); EOS % 1.9 % (1.5-5.0); GRAN # 3.77 (1.4-6.5); GRAN % 70.7 % (50.0-68.0); HEMATOCRIT 31.2 % (36.0-48.0); LYMPH % 17.8 % (22.0-35.0); MEAN CELL VOLUME 79.8 fl (80.0-105.0); MEAN CORPUSCULAR HEMOGLOBIN 28.4 pg (25.0-35.0); MEAN CORPUSCULAR HGB CONC 35.6 g/dl (31.0-37.0); MEAN PLATELET VOLUME 9.9 fl (7.0-11.0); MONO # 0.5 (0.1-0.6); MONO % 9.4 % (1.0-6.0); PLATELET COUNT 226 10^3/uL (120.0-450.0); RETIC% 1.38 % (0.5-1.5); WHITE BLOOD COUNT 5.3 10^3/ul (4.5-11.0)
[2017-01-31 07:32] LABS: ALKALINE PHOSPHATASE 100 U/L (38-126); ALT/SGPT 48 U/L (7-56); AST/SGOT 41 U/L (14-36); BILIRUBIN,TOTAL 0.8 mg/dL (0.2-1.3); BLOOD UREA NITROGEN 9 mg/dL (7-21); CARBON DIOXIDE 22 mmol/L (21-33); CHLORIDE 102 mmol/L (98-107); GFR AFRICAN-AMERICAN > 60; GLUCOSE,RANDOM 90 mg/dL (70-110); POTASSIUM 4.3 mmol/L (3.6-5.0); SODIUM 137 mmol/L (132-148); TOTAL PROTEIN 7.1 g/dL (5.8-8.3)
[2017-01-31] MEDS: diltiaZEM 180 mg/24 Hours CD Cap PO SCH (09:44)
--- NOTE | 2017-01-31 11:18 | PN ---
DATE: 01/31/2017 SUBJECTIVE: The patient is resting in bed without shortness of breath. PHYSICAL EXAMINATION: VITAL SIGNS: Blood pressure is 139/67, heart rate in the 70s. NECK: Negative JVD. LUNGS: Without rales. HEART: S1 and S2. EXTREMITIES: Without edema. LABORATORY DATA: Hemoglobin is 11.1. IMPRESSION: 1. Gastrointestinal bleed. 2. Anemia. 3. Hypertension. 4. History of pericarditis. 5. History of paroxysmal atrial fibrillation, which the patient is remaining in normal sinus rhythm. The patient is for endoscopy today. Berhane Herrera MD
[2017-01-31] MEDS ORDERED: Propofol 10 mg/ml Inj (20 ML) ONE ×2 (11:53→12:35)
[2017-01-31] MEDS ORDERED: ePHEDrine 50 mg/ml Inj ONE (12:32)
[2017-01-31 12:55] LABS: HEPATITIS C VIRAL RNA QUAL Not detected
[2017-01-31] MEDS ORDERED: Sodium Chloride 0.9% 1,000 ML IV SCH (13:00)
[2017-01-31] MEDS: cefTRIAXone 1 gm 1 GM/100 ML BAG IVPB SCH (15:37)
[2017-02-01 05:04] VITALS: RESP 20
[2017-02-01] MEDS ORDERED: Pantoprazole 40 mg Susp UD PO SCH (06:47)
[2017-02-01 08:14] VITALS: PULSE 86; TEMP 99.7; O2SAT 97
[2017-02-01] MEDS ORDERED: Loperamide Hydrochloride 1 mg/5 ml Cup PO PRN (09:30)
--- NOTE | 2017-02-01 09:47 | CP.PCM.PN ---
<RenatoLi - Last Filed: 02/01/17 09:42> Subjective - Date & Time of Evaluation Date of Evaluation: 02/01/17 Time of Evaluation: 09:43 - Subjective Subjective: Gastroenterology Fellow/PGY5 Progress Note Patient feels well this morning. Notes mild foodpipe discomfort after banding yesterday. Tolerating clear liquid diet. Continues to have watery diarrhea. 12- point review of systems negative except for as above. Objective - Vital Signs/Intake and Output Vital Signs (last 24 hours): Temp Pulse Resp BP Pulse Ox 99.7 F H 86 20 142/76 97 02/01/17 07:30 02/01/17 07:30 02/01/17 07:30 02/01/17 07:30 02/01/17 07:30 Intake and Output: 02/01/17 02/01/17 06:59 18:59 Intake Total 1520 Balance 1520 - Medications Medications: Current Medications Diltiazem HCl (Cardizem Cd) 180 mg PO DAILY [facility] Last Admin: 01/31/17 09:44 Dose: 180 mg Furosemide (Lasix) 40 mg PO DAILY [facility] Last Admin: 01/31/17 09:45 Dose: 40 mg Ceftriaxone Sodium (Rocephin 1 Gram Ivpb) 1 gm in 100 mls @ 100 mls/hr IVPB DAILY [facility] PRN Reason: Protocol Last Admin: 01/31/17 15:37 Dose: 100 mls/hr Sodium Chloride (Sodium Chloride 0.9%) 1,000 mls @ 100 mls/hr IV .Q10H [facility] Loperamide HCl (Imodium) 2 mg PO Q4H PRN PRN Reason: Diarrhea Ondansetron HCl (Zofran Inj) 4 mg IVP Q4H PRN PRN Reason: Nausea/Vomiting Pantoprazole Sodium (Protonix Susp) 40 mg PO 0600 [facility] Propranolol HCl (Inderal) 10 mg PO BID [facility] Last Admin: 01/31/17 17:47 Dose: 10 mg Sertraline HCl (Zoloft) 50 mg PO DAILY [facility] Last Admin: 01/31/17 09:44 Dose: 50 mg - Labs Labs: 01/31/17 06:30 01/31/17 06:30 PT 13.9 Seconds (9.9-11.8) H 01/30/17 08:15 INR 1.29 (0.93-1.08) H 01/30/17 08:15 APTT 31.3 Seconds (23.7-30.8) H 01/28/17 14:06 - Constitutional Appears: Non-toxic, No Acute Distress - Head Exam Head Exam: ATRAUMATIC, NORMOCEPHALIC - Eye Exam Eye Exam: EOMI, PERRL Pupil Exam: PERRL. absent: Miosis, Mydriatic - ENT Exam ENT Exam: Mucous Membranes Moist, Normal Oropharynx - Neck Exam Neck Exam: Full ROM, Normal Inspection - Respiratory Exam Respiratory Exam: Clear to Ausculation Bilateral. absent: Rales, Rhonchi, Wheezes - Cardiovascular Exam Cardiovascular Exam: RRR, +S1, +S2. absent: Gallop, Rubs - GI/Abdominal Exam GI & Abdominal Exam: Soft, Normal Bowel Sounds. absent: Distended, Firm, Guarding, Rigid, Tenderness, Organomegaly, Rebound Assessment and Plan - Assessment and Plan (Free Text) Assessment: 66 year old female with history of Hypertension, history of Polysubstance abuse , decompensated HCV/ETOH cirrhosis (2013- GIB 2/2 esophageal varices), HCV treatment December 2014 (Dr. Calderon) with viral clearance/SVR, and recently diagnosed pericarditis presenting with black diarrhea, weakness, and shortness of breath. Active treatment of decompensated cirrhosis 2/2 esophageal varices POD1 (02/01/17) three esophageal bands and signs of GAVE and gastritis. Prior EGD in 2013 showed esophageal varices and gastric ulcer. Prior colonoscopy 10 years ago endorsed to be normal per patient. Plan: >continue Propranolol 10mg BID >stopped Octreotide drip >H/H stable >soft diet >continue PPI daily >follow up gastric biopsies >re-ordered stool workup >ordered Imodium PRN >HCV viral load not detected >repeat esophageal banding in 6 weeks >will require further outpatient liver cross-sectional imaging to evaluate 1.9cm caudate lobe lesion >will require outpatient colonoscopy for CRC surveillance >appointment made with Dr. Calderon February 08, 2017 at 315pm >Thank you for opportunity to participate in the care of this patient <Alejandro Sorensen - Last Filed: 02/01/17 10:17> Objective - Vital Signs/Intake and Output Vital Signs (last 24 hours): Temp Pulse Resp BP Pulse Ox 99.7 F H 86 20 142/76 97 02/01/17 07:30 02/01/17 07:30 02/01/17 07:30 02/01/17 07:30 02/01/17 07:30 Intake and Output: 02/01/17 02/01/17 06:59 18:59 Intake Total 1520 Balance 1520 - Medications Medications: Current Medications Diltiazem HCl (Cardizem Cd) 180 mg PO DAILY [facility] Last Admin: 01/31/17 09:44 Dose: 180 mg Furosemide (Lasix) 40 mg PO DAILY [facility] Last Admin: 01/31/17 09:45 Dose: 40 mg Ceftriaxone Sodium (Rocephin 1 Gram Ivpb) 1 gm in 100 mls @ 100 mls/hr IVPB DAILY [facility] PRN Reason: Protocol Last Admin: 01/31/17 15:37 Dose: 100 mls/hr Sodium Chloride (Sodium Chloride 0.9%) 1,000 mls @ 100 mls/hr IV .Q10H [facility] Loperamide HCl (Imodium) 2 mg PO Q4H PRN PRN Reason: Diarrhea Ondansetron HCl (Zofran Inj) 4 mg IVP Q4H PRN PRN Reason: Nausea/Vomiting Pantoprazole Sodium (Protonix Susp) 40 mg PO 0600 [facility] Propranolol HCl (Inderal) 10 mg PO BID [facility] Last Admin: 01/31/17 17:47 Dose: 10 mg Sertraline HCl (Zoloft) 50 mg PO DAILY [facility] Last Admin: 01/31/17 09:44 Dose: 50 mg - Labs Labs: 01/31/17 06:30 01/31/17 06:30 PT 13.9 Seconds (9.9-11.8) H 01/30/17 08:15 INR 1.29 (0.93-1.08) H 01/30/17 08:15 APTT 31.3 Seconds (23.7-30.8) H 01/28/17 14:06 Attending/Attestation - Attestation I have personally seen and examined this patient.: Yes I have fully participated in the care of the patient.: Yes I have reviewed all pertinent clinical information, including history, physical exam and plan: Yes Notes (Text): 02/01/17 10:15 66 year old female with h/o Etoh/HCV cirrhosis c/b esophageal varices now s/p banding. 1. Esophageal varices 2. Cirrhosis 3. Diarrhea 4. Anemia Plan: -continue non-selective BB for prevention of bleeding -s/p banding yesterday -repeat egd with banding in 6-8 weeks -consider outpatient colonoscopy -no other signs of decompensation -advance diet -stool studies pending to r/o infectious diarrhea -lomotil or immodium prn
[2017-02-01] MEDS: diltiaZEM 180 mg/24 Hours CD Cap PO SCH (10:24)
[2017-02-01] MEDS: cefTRIAXone 1 gm 1 GM/100 ML BAG IVPB SCH (10:24)
[2017-02-01 10:25] VITALS: BP 140/70
[2017-02-01] MEDS ORDERED: Cholestyramine 4 gm/Pkt UD PO SCH (14:15)
--- NOTE | 2017-02-02 12:48 | DS ---
HISTORY OF PRESENT ILLNESS: The patient was seen this morning in room 565, bed 2. She is comfortable on the bed, in no acute distress, ready for discharge to home. 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 She has a history of hepatitis C, esophageal varices, alcoholic cirrhosis, and GI bleed in the past. She came to the emergency room with several days of diarrhea and watery stools, which then developed into a dark melanotic diarrhea. She is severely dehydrated with prerenal azotemia and admitted. COURSE OF HOSPITAL STAY: She is resuscitated with IV fluids. BUN and creatinine came down. She was transfused. Hemoglobin remained stable. Endoscopy was performed showing esophageal varices and 3 clips were placed on the varices. Her bleeding had stopped. There was no further melanotic stool, although diarrhea continued. GI consultants addressed the upper GI symptoms and melena. Diarrhea was controlled while I added cholestyramine powder to help control the diarrhea. Stool C and S and C. diff toxins were ordered. The patient is ready for discharge to home. FINAL DISCHARGE DIAGNOSES: 1. Severe anemia. 2. Upper gastrointestinal bleed. 3. Esophageal varices. 4. 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 5. History of hepatitis C. Darrell Flores MD
== END 2017-02-01 16:44 | disposition home or self-care (01) | DRG 377 ==
LOC: ED 13:02 → ERH 15:21 → 2RSO 16:22 → 5RNO 01-29 16:23
PROVIDERS: ADMIT Internal Medicine; ATTEND Internal Medicine
PROC: 06L34CZ Occlusion of Esophageal Vein with Extraluminal Device, Percutaneous Endoscopic Approach (ICD-10-PCS; principal; 2017-01-31 11:15)
PROC: 0DB68ZX Excision of Stomach, Via Natural or Artificial Opening Endoscopic, Diagnostic (ICD-10-PCS; 2017-01-31 11:15)
DX: K92.1 Melena (principal); I85.11 Secondary esophageal varices with bleeding; N17.9 Acute kidney failure, unspecified; I31.9 Disease of pericardium, unspecified; K31.819 Angiodysplasia of stomach and duodenum without bleeding; K74.60 Unspecified cirrhosis of liver; I11.0 Hypertensive heart disease with heart failure; I50.9 Heart failure, unspecified; I27.2 Other secondary pulmonary hypertension; E86.0 Dehydration; I48.0 Paroxysmal atrial fibrillation; E87.5 Hyperkalemia; K80.20 Calculus of gallbladder without cholecystitis without obstruction; E66.9 Obesity, unspecified; J44.9 Chronic obstructive pulmonary disease, unspecified; F17.210 Nicotine dependence, cigarettes, uncomplicated; D64.9 Anemia, unspecified; Z68.38 Body mass index [BMI] 38.0-38.9, adult; Z86.19 Personal history of other infectious and parasitic diseases; Z85.828 Personal history of other malignant neoplasm of skin

== ENCOUNTER 2017-05-18 06:17 | Day surgery (SDC) | payer MEDICARE ==
[2017-05-09 09:45] VITALS: BMI 36.6
[2017-05-18] MEDS ORDERED: Propofol 10 mg/ml Inj (20 ML) ONE (08:15)
[2017-05-18] MEDS ORDERED: Lidocaine 1% Inj (20ml) ONE (08:17)
[2017-05-18] MEDS ORDERED: Sodium Chloride 0.9% 1,000 ML IV SCH (08:45)
[2017-05-18 10:10] VITALS: BP 128/53; PULSE 61; RESP 16; TEMP 98.1; O2SAT 96
== END 2017-05-18 10:14 | disposition home or self-care (01) ==
LOC: ENDO 06:17
PROVIDERS: ATTEND Internal Medicine Gastroenterology
DX: I85.00 Esophageal varices without bleeding (principal); K76.6 Portal hypertension; K74.60 Unspecified cirrhosis of liver; B19.20 Unspecified viral hepatitis C without hepatic coma; I10 Essential (primary) hypertension; K29.70 Gastritis, unspecified, without bleeding; K31.89 Other diseases of stomach and duodenum
CPT/HCPCS: 43235; J2704; J7040 ×2

== ENCOUNTER 2018-09-10 08:20 | Outpatient (CLI) | payer MEDICARE | END 2018-09-10 08:21 | disposition home or self-care (01) | LOC: LAB 08:20 ==

== ENCOUNTER 2018-09-13 08:52 | Outpatient (CLI) | payer MEDICARE | END 2018-09-13 08:53 | disposition home or self-care (01) | LOC: RAD 08:52 ==